=== PATIENT | male | born 1940 | race Caucasian/White ===

== ENCOUNTER → 2018-04-05 | Outpatient (CLI) | payer MEDICARE, BC ==
--- NOTE | 2018-04-05 09:33 | CT ---
EXAMINATION TYPE: CT abdomen pelvis wo con DATE OF EXAM: 04/05/2018 COMPARISON: NONE HISTORY: Urinary bladder calculus CT DLP: 911.0 mGycm Automated exposure control for dose reduction was used. TECHNIQUE: Helical acquisition of images was performed from the lung bases through the pelvis. FINDINGS: LUNG BASES: Punctate 2 mm noncalcified pulmonary nodule seen in the subpleural right posterior lung b ase on image 8. LIVER/GB: Multiple large gallstones layer within the gallbladder body and neck. Liver is of unremarka ble unenhanced morphology. PANCREAS: No significant abnormality is seen. SPLEEN: Small splenule seen posterior to the [place] spleen. ADRENALS: No significant abnormality is seen. KIDNEYS/URINARYBLADDER/PROSTATE: Linear nonobstructing 7 mm left upper pole renal calculus and 4 mm l eft lower pole nonobstructing renal calculus as well as 2 additional 2 mm left lower pole nonobstruct ing renal calculi are seen. 3 mm right lower pole renal calculus is also nonobstructing. No hydroneph rosis. There are approximately 10 large urinary bladder calculi measuring up to 2.6 cm collected with in the dependent urinary bladder. Prostate gland is enlarged measuring up to 6.1 cm in transverse dim ension containing few punctate central zone calcifications. Small left inguinal hernia is identified with bilateral fat filled inguinal rings. FREE AIR: No free air is visualized PELVIC ADENOPATHY: No greater than 1 cm short axis lymph nodes are seen within the abdomen or pelvis . OSSEOUS STRUCTURES: Extensive degenerative changes are seen of the right femoral acetabular joint an d to a lesser degree of the left femoral acetabular joint. Punctate sclerotic foci are scattered thro ughout the pelvis with no aggressive appearing lesion. Moderate multilevel degenerative changes of th e visualized spine are noted. BOWEL: Numerous sigmoid and colonic diverticula are seen without pericolonic fat stranding. Small luz wel and large bowel are both nondilated. OTHER: Moderate calcific atheromatous changes are seen of the abdominal artery and its branches. IMPRESSION: 1. AT LEAST 10 LARGE URINARY BLADDER CALCULI MEASURING UP TO 2.6 CM LAYERING DEPENDENTLY WITHIN THE U RINARY BLADDER. THESE COULD BE A RESULT OF CHRONIC BLADDER OUTLET OBSTRUCTION THE PROSTATE GLAND I S ENLARGED MEASURING 6.1 CM AND SLIGHTLY HETEROGENOUS. 2. BILATERAL NONOBSTRUCTING RENAL CALCULI. NO CURRENT EVIDENCE OF OBSTRUCTIVE UROPATHY. 3. CHOLELITHIASIS. NO CT EVIDENCE OF ACUTE CHOLECYSTITIS.
== END | disposition home or self-care (01) ==
LOC: RADCTMAIN 08:26
PROVIDERS: ATTEND Urology
DX: N21.0 Calculus in bladder (principal); N40.0 Benign prostatic hyperplasia without lower urinary tract symptoms; N20.0 Calculus of kidney; K80.20 Calculus of gallbladder without cholecystitis without obstruction
CPT/HCPCS: 74176

== ENCOUNTER → 2018-05-23 | Outpatient (CLI) | payer MEDICARE, BC ==
[2018-05-23 14:31] LABS: Anisocytosis Slight; Basophils % (A) 0 %; Eosinophils # (A) 0.1 k/uL (0-0.7); Eosinophils % (A) 2 %; HCT 43.6 % (39.0-53.0); HGB 13.7 gm/dL (13.0-17.5); Hypochromasia Slight; Lymphocytes # (A) 0.7 k/uL (1.0-4.8); Lymphocytes % (A) 17 %; MCH 25.7 pg (25.0-35.0); MCHC 31.5 g/dL (31.0-37.0); MCV 81.7 fL (80.0-100.0); Mean Platelet Volume 8.4; Microcytosis Slight; Monocytes # (A) 0.4 k/uL (0-1.0); Monocytes % (A) 11 %; Neutrophils # (A) 2.8 k/uL (1.3-7.7); Neutrophils % (A) 69 %; Platelet Count 149 k/uL (150-450); RBC 5.33 m/uL (4.30-5.90); RDW 19.3 % (11.5-15.5)
[2018-05-23 14:39] LABS: Anion Gap 9 mmol/L; Blood Urea Nitrogen 24 mg/dL (9-20); Calcium 9.2 mg/dL (8.4-10.2); Carbon Dioxide 25 mmol/L (22-30); Chloride 109 mmol/L (98-107); Glucose 95 mg/dL (74-99); Potassium 4.7 mmol/L (3.5-5.1); Sodium 143 mmol/L (137-145)
== END | disposition home or self-care (01) ==
LOC: LABPAT 13:23
PROVIDERS: ATTEND Urology
DX: Z01.812 Encounter for preprocedural laboratory examination (principal); N21.0 Calculus in bladder; R35.0 Frequency of micturition; R31.29 Other microscopic hematuria
CPT/HCPCS: 36415; 80048; 85025; 87086

== ENCOUNTER 2018-05-30 08:31 | Inpatient (IN) | payer MEDICARE, BC ==
[2018-05-24 12:13] VITALS: BMI 29.1
--- NOTE | 2018-05-26 08:35 | P.GSHP ---
History of Present Illness H&P Date: 05/26/18 Chief Complaint: Dysuria, hematuria The patient is a 78-year-old male with voiding symptoms. He has recently experienced dysuria and hematuria. A recent computed tomography scan shows approximately 10 bladder calculi, measuring up to 2.6 cm in size. The computed tomography scan also shows multiple left renal calculi and a 3 mm right lower pole renal calculus. - Constitutional Constitutional: Denies chills, Denies fever - EENT Ears: bilateral: decreased hearing - Genitourinary (Female) Genitourinary: Reports dysuria, Reports hematuria Past Medical History Past Medical History: Atrial Fibrillation, Hearing Disorder / Deafness, Hyperlipidemia, Hypertension, Osteoarthritis (OA) Additional Past Medical History / Comment(s): Hx: HHT, kidney stones, bladder stones History of Any Multi-Drug Resistant Organisms: None Reported Past Surgical History: Heart Catheterization With Stent, Hernia Repair, Joint Replacement, Orthopedic Surgery Additional Past Surgical History / Comment(s): lt knee replacement, jessy heel spurs, umbilical hernia Past Anesthesia/Blood Transfusion Reactions: Previous Problems w/ Anesthesia Additional Past Anesthesia/Blood Transfusion Reaction / Comment(s): "slow waking up" "have to keep my head elevated" Date of Last Stent Placement:: 2000 Smoking Status: Never smoker - Past Family History Brother(s) Family Medical History: Blood Disorder Additional Family Medical History / Comment(s): 2 brothers with HHT Sister(s) Family Medical History: Blood Disorder Additional Family Medical History / Comment(s): 2 sisters HHT Father Additional Family Medical History / Comment(s): hht Mother Family Medical History: Diabetes Mellitus Medications and Allergies Home Medications Medication Instructions Recorded Confirmed Type Aspirin 81 mg PO DAILY chew 06/14/15 05/24/18 Rx Multivitamins, Thera [Multivitamin 1 each PO DAILY@1200 tab 06/14/15 05/24/18 Rx (formulary)] Ascorbic Acid [Vitamin C] 250 mg PO DAILY 05/24/18 05/24/18 History Cephalexin [Keflex] 500 mg PO Q6HR 05/24/18 05/24/18 History Lisinopril [Zestril] 20 mg PO BID 05/24/18 05/24/18 History Simvastatin [Zocor] 20 mg PO HS 05/24/18 05/24/18 History Allergies Allergy/AdvReac Type Severity Reaction Status Date / Time No Known Allergies Allergy Verified 05/24/18 11:57 Surgical - Exam - General well developed, well nourished, no distress - Neck no masses, trachea midline - Respiratory normal respiratory effort, clear to auscultation - Cardiovascular Rhythm: irregularly irregular - Abdomen Abdomen: soft, non tender, no guarding, no rigid, no rebound - Genitourinary normal penis with no external lesions, testicles non-tender - Psychiatric oriented to time, oriented to person, oriented to place, speech is normal, memory intact Assessment and Plan (1) Bladder calculi Status: Acute Code(s): N21.0 - CALCULUS IN BLADDER SNOMED Code(s): 84451294 Plan: Given the large number and size of the bladder calculi, cystolithotripsy is not felt to be a practical treatment option. He will thus undergo an open cystolithotomy. The rationale for this has been reviewed in detail with the patient, as was the anticipated perioperative course. Potential risks include anesthesia, bleeding, infection, and urinary leak. The patient understands the need for a Vasquez catheter postoperatively. He also understands that he may experience persistent voiding dysfunction due to BPH. He has been cleared by cardiology.
[~2018-05-30 08:31] MED LIST: LACTATED RINGERS 1,000 ML IV SCH; ONDANSETRON 4 MG/2 ML VIAL IVP ONE; ceFAZolin IN SWFI 2 GM/20 ML SYRINGE IVP ONE
[2018-05-30] MEDS ORDERED: LIDOCAINE 1% 20 ML VIAL (10MG/ML) FOR IV START INTRADERMA ONE (08:51)
[2018-05-30] MEDS ORDERED: LIDOCAINE 1% INJ 10MG/ML (20 ML MDV) ONE (12:33)
[2018-05-30] MEDS ORDERED: SUCCINYLCHOLINE CHLORIDE 100 MG/5 ML SYR IV ONE (12:33)
[2018-05-30] MEDS ORDERED: GLYCOPYRROLATE 0.2 MG/ML 2 ML VIAL ONE (12:33)
[2018-05-30] MEDS ORDERED: PHENYLEPHRINE-0.9% NACL SYG 1 MG/10 ML SYRINGE ONE (12:33)
[2018-05-30] MEDS ORDERED: MIDAZOLAM 2 MG/2 ML VIAL ONE (12:33)
[2018-05-30] MEDS ORDERED: PROPOFOL 10 MG/ML 20 ML VIAL IV ONE (12:33)
[2018-05-30] MEDS ORDERED: fentaNYL (PF) 50 MCG/ML 2 ML AMP ONE (12:33)
[2018-05-30] MEDS ORDERED: NEOSTIGMINE 1 MG/ML 10 ML VIAL ONE (12:33)
[2018-05-30] MEDS ORDERED: VECURONIUM 10 MG VIAL IV ONE (12:33)
[2018-05-30] MEDS ORDERED: HYDROmorphone (PF) 1 MG/ML ONE (12:33)
[2018-05-30] MEDS ORDERED: LACTATED RINGERS 1,000 ML IV ONE (13:08)
[2018-05-30] MEDS ORDERED: ACETAMINOPHEN TAB 325 MG TAB PO PRN (13:52)
[2018-05-30] MEDS ORDERED: HYDROmorphone 1 MG/ML 1 ML SYRINGE IVP PRN (13:52)
[2018-05-30] MEDS ORDERED: KETOROLAC 30 MG/ML 1 ML VIAL IVP PRN (13:55)
--- NOTE | 2018-05-30 14:03 | P.OP ---
Date of Procedure: 05/30/18 Preoperative Diagnosis: Bladder calculi Postoperative Diagnosis: Same Procedure(s) Performed: Open cystolithotomy Anesthesia: JANAA Surgeon: Marco Camara Estimated Blood Loss (ml): 30 IV fluids (ml): 700 Pathology: other (Bladder calculi, sent for gross inspection only.) Condition: stable Disposition: PACU Indications for Procedure: The patient is a 78-year-old male with voiding symptoms. He has recently experienced dysuria and hematuria. A recent computed tomography scan shows approximately 10 bladder calculi, measuring up to 2.6 cm in size. Operative Findings: Multiple large bladder calculi Description of Procedure: The patient was taken to the operating room and placed in the supine position. The lower abdomen and external genitalia were prepped and draped sterilely. A Vasquez catheter was placed. Normal saline was instilled into the bladder. The scalpel was used to make a midline infraumbilical skin incision. The Bovie electrocautery was used to incise the subcutaneous fat and linea alba in the midline. The space of Retzius was exposed. The Bovie electrocautery was used to make a midline anterior cystotomy incision. The bladder was opened, and multiple calculi were removed from the bladder. Once all of the calculi had been removed, the cystotomy incision was closed. The mucosa was closed using 3- 0 Vicryl suture in a running fashion. The muscle was closed using 2-0 Vicryl suture in a running fashion. Normal saline was again instilled into the bladder , and no leakage from the cystotomy closure was noted. A Pablo-Rice drain was left within the space of Retzius. This was brought out through a separate stab incision to the right of the midline incision. The drain was sutured to the skin using nylon suture, and was later attached to bulb suction. Hemostasis within the space of Retzius was excellent. The linea alba was closed using #1 double-stranded PDS suture in a running fashion. The skin was closed using naveed. All sponge and needle counts were correct. A sterile gauze dressing was applied over the incision. The Vasquez catheter was left to gravity drainage. The patient tolerated the procedure well was taken to the recovery room in stable condition.
[2018-05-30] MEDS ORDERED: METOPROLOL TARTRATE 5 MG/5 ML VIAL IVP ONE (14:08)
[2018-05-30] MEDS: HYDROmorphone 0.5 MG/0.5 ML SYRINGE IVP PRN ×4 (14:23→15:38)
[2018-05-30] MEDS: DEXTROSE 5%-0.45% NACL 1,000 ML IV SCH (16:43)
[2018-05-30] MEDS: HYDROcodone/APAP 5-325MG 1 EACH TAB PO PRN (18:21)
[2018-05-30] MEDS: ATORVASTATIN 10 MG TAB PO SCH (20:49)
[2018-05-30] MEDS: LISINOPRIL 20 MG TAB PO SCH (20:49)
[2018-05-31] MEDS: DEXTROSE 5%-0.45% NACL 1,000 ML IV SCH ×2 (05:26→17:13)
--- NOTE | 2018-05-31 08:03 | P.PN ---
Subjective Progress Note Date: 05/31/18 Principal diagnosis: POD #1, s/p open cystolithotomy. Mr. Bañuelos report some incisional discomfort this morning, but is otherwise doing well. Objective - Vital Signs Vital signs: Vital Signs Temp 98.5 F 05/31/18 00:27 Pulse 72 05/31/18 00:27 Resp 16 05/31/18 00:27 BP 97/54 05/31/18 00:27 Pulse Ox 95 05/31/18 00:27 Intake & Output 05/30/18 05/31/18 05/31/18 18:59 06:59 18:59 Intake Total 1700 825 Output Total 430 820 Balance 1270 5 Weight 97.522 kg Intake: IV 1700 Intake, IV Titration 825 Amount Dextrose 5%-0.45% NaCl 1, 825 000 ml @ 75 mls/hr IV . [id number] [facility] Rx#:[id number] Output: Drainage 20 Right Abdomen 20 Urine 400 800 Estimated Blood Loss 30 Other: Voiding Method Indwelling Catheter Indwelling Catheter - Constitutional General appearance: Present: cooperative, no acute distress - Gastrointestinal Gastrointestinal Comment(s): Soft, nondistended. Minimal old sanguinous drainage from incision. Minimal BRENDA output. Assessment and Plan (1) Bladder calculi Current Visit: No Status: Acute Code(s): N21.0 - CALCULUS IN BLADDER SNOMED Code(s): 60144356 Plan: Doing well. Encourage fluids and ambulation. Anticipate discharge home tomorrow with Vasquez catheter.
[2018-05-31] MEDS: LISINOPRIL 20 MG TAB PO SCH ×2 (08:28→21:00)
--- NOTE | 2018-05-31 11:45 | P.PN ---
Subjective Principal diagnosis: Patient of Dr. Galan Doing well following cystoscopy lithotomy Denies any chest discomfort no undue shortness of breath does have some abdominal discomfort On examination temperature 98.5F blood pressure 117/64 mmHg pulse rate in the 70s Breath sounds are reduced bilaterally Heart sounds S1-S2 normal, no murmurs or gallops Impression Hypertension, on lisinopril and amlodipine Dyslipidemia on simvastatin Suggest Continue/restart cardiac medications and follow-up with Dr. Galan in the next 4 -6 weeks Objective - Vital Signs Vital signs: Vital Signs Temp 98.5 F 05/31/18 00:27 Pulse 72 05/31/18 00:27 Resp 16 05/31/18 00:27 BP 97/54 05/31/18 00:27 Pulse Ox 95 05/31/18 00:27 Intake & Output 05/30/18 05/31/18 05/31/18 18:59 06:59 18:59 Intake Total 1700 825 Output Total 430 820 Balance 1270 5 Weight 97.522 kg Intake: IV 1700 Intake, IV Titration 825 Amount Dextrose 5%-0.45% NaCl 1, 825 000 ml @ 75 mls/hr IV . [id number] [facility] Rx#:[id number] Output: Drainage 20 Right Abdomen 20 Urine 400 800 Estimated Blood Loss 30 Other: Voiding Method Indwelling Catheter Indwelling Catheter # Voids 1
[2018-05-31] MEDS: ATORVASTATIN 10 MG TAB PO SCH (21:00)
[2018-06-01] MEDS: LISINOPRIL 20 MG TAB PO SCH ×2 (08:22→21:19)
[2018-06-01] MEDS: HYDROcodone/APAP 5-325MG 1 EACH TAB PO PRN ×2 (08:49→21:19)
--- NOTE | 2018-06-01 09:49 | P.PN ---
Progress Note - Text Progress Note Date: 06/01/18 The patient is afebrile and normotensive. He is tolerating a diet but has not had a bowel movement since he was admitted. He has been sitting at the side of the bed but has not been ambulatory due to suprapubic discomfort. On examination the patient's incision and is uninflamed. His Pablo-Rice drain continues to have a moderate amount of serosanguineous material draining. Urine draining from the Vasquez catheter is clear. The patient's diet and activity will be advanced and hopefully he will be ready for discharge tomorrow with a catheter in place.
[2018-06-01] MEDS: DEXTROSE 5%-0.45% NACL 1,000 ML IV SCH ×2 (18:45→21:21)
[2018-06-01] MEDS: ATORVASTATIN 10 MG TAB PO SCH (21:19)
[2018-06-02] MEDS: DEXTROSE 5%-0.45% NACL 1,000 ML IV SCH (09:30)
[2018-06-02] MEDS: LISINOPRIL 20 MG TAB PO SCH (09:30)
[2018-06-02] MEDS: HYDROcodone/APAP 5-325MG 1 EACH TAB PO PRN ×2 (12:59→17:12)
[2018-06-02 16:42] VITALS: BP 124/71; PULSE 81; RESP 16; TEMP 97.9
== END 2018-06-02 18:34 | disposition home or self-care (01) | DRG 664 ==
LOC: 2ORMAIN 08:31 → 3SUR 14:09
PROVIDERS: ADMIT Urology; ATTEND Urology
PROC: 0TCB0ZZ Extirpation of Matter from Bladder, Open Approach (ICD-10-PCS; principal; 2018-05-30 10:20)
DX: N21.0 Calculus in bladder (principal); E78.5 Hyperlipidemia, unspecified; H91.90 Unspecified hearing loss, unspecified ear; I10 Essential (primary) hypertension; I48.91 Unspecified atrial fibrillation; N20.0 Calculus of kidney; Z79.899 Other long term (current) drug therapy; Z82.49 Family history of ischemic heart disease and other diseases of the circulatory system; Z83.3 Family history of diabetes mellitus; Z87.442 Personal history of urinary calculi; Z96.652 Presence of left artificial knee joint; Z83.2 Family history of diseases of the blood and blood-forming organs and certain disorders involving the immune mechanism; M19.90 Unspecified osteoarthritis, unspecified site; I25.10 Atherosclerotic heart disease of native coronary artery without angina pectoris; Z95.5 Presence of coronary angioplasty implant and graft
CPT/HCPCS: 88300; 93005

== ENCOUNTER 2018-06-05 15:20 | Inpatient (IN) | payer MEDICARE, BC ==
--- NOTE | 2018-06-05 17:04 | ED ---
Fever HPI - General Chief Complaint: Fever Stated Complaint: fever/shaky Time Seen by Provider: 06/05/18 16:50 Source: patient, family, RN notes reviewed Mode of arrival: wheelchair Limitations: no limitations - History of Present Illness Initial Comments: This is a 78-year-old male with a history of recent bladder stone removal who has a Vasquez catheter since the of this month who had a sudden onset at 1440 5 PM today and shakes and fever. Also he believes his catheter may be plugged he had clots were he had pink colored urine before. He denies any overt abdominal pain at this time that he states it feels full in the lower abdomen. No other symptoms reported MD Complaint: fever, other - Related Data Home Medications Medication Instructions Recorded Confirmed Ascorbic Acid [Vitamin C] 250 mg PO DAILY 05/24/18 06/05/18 Lisinopril [Zestril] 20 mg PO BID 05/24/18 06/05/18 Simvastatin [Zocor] 20 mg PO HS 05/24/18 06/05/18 Previous Rx's Medication Instructions Recorded Aspirin 81 mg PO DAILY chew 06/14/15 Multivitamins, Thera [Multivitamin 1 each PO DAILY@1200 tab 06/14/15 (formulary)] HYDROcodone/APAP 5-325MG [[place] 1 tab PO Q6HR PRN 3 Days #12 tab 06/02/18 5-325] Allergies Allergy/AdvReac Type Severity Reaction Status Date / Time No Known Allergies Allergy Verified 06/05/18 17:06 Review of Systems ROS Statement: Those systems with pertinent positive or pertinent negative responses have been documented in the HPI. ROS Other: All systems not noted in ROS Statement are negative. Past Medical History Past Medical History: Atrial Fibrillation, Hearing Disorder / Deafness, Hyperlipidemia, Hypertension, Osteoarthritis (OA) Additional Past Medical History / Comment(s): Hx: HHT, kidney stones, bladder stones History of Any Multi-Drug Resistant Organisms: None Reported Past Surgical History: Heart Catheterization With Stent, Hernia Repair, Joint Replacement, Orthopedic Surgery Additional Past Surgical History / Comment(s): lt knee replacement, jessy heel spurs, umbilical hernia Past Anesthesia/Blood Transfusion Reactions: Previous Problems w/ Anesthesia Additional Past Anesthesia/Blood Transfusion Reaction / Comment(s): "slow waking up" "have to keep my head elevated so I don't get nosebleeds" Date of Last Stent Placement:: 2000 Past Psychological History: No Psychological Hx Reported Smoking Status: Never smoker Past Alcohol Use History: None Reported Past Drug Use History: None Reported - Past Family History Brother(s) Family Medical History: Blood Disorder Additional Family Medical History / Comment(s): 2 brothers with HHT Sister(s) Family Medical History: Blood Disorder Additional Family Medical History / Comment(s): 2 sisters HHT Father Additional Family Medical History / Comment(s): hht Mother Family Medical History: Diabetes Mellitus General Exam - General Exam Comments Initial Comments: This is a well-developed well-nourished awake alert oriented times 3 male Limitations: no limitations General appearance: alert, anxious Head exam: Present: atraumatic, normocephalic, normal inspection Eye exam: Present: normal appearance, PERRL, EOMI. Absent: scleral icterus, conjunctival injection, periorbital swelling ENT exam: Present: normal exam, mucous membranes moist Neck exam: Present: normal inspection. Absent: tenderness, meningismus, lymphadenopathy Respiratory exam: Present: normal lung sounds bilaterally. Absent: respiratory distress, wheezes, rales, rhonchi, stridor Cardiovascular Exam: Present: normal rhythm, tachycardia, normal heart sounds. Absent: systolic murmur, diastolic murmur, rubs, gallop, clicks GI/Abdominal exam: Present: soft, normal bowel sounds, other (Patient is abdomen revealed a well-healing surgical staple line with no evidence of any dehiscence). Absent: distended, guarding, rebound, rigid exam: Present: other (Vasquez catheter present with blood and clots present.) Extremities exam: Present: normal inspection, full ROM, normal capillary refill. Absent: tenderness, pedal edema, joint swelling, calf tenderness Back exam: Present: normal inspection Neurological exam: Present: alert, oriented X3, CN II-XII intact Psychiatric exam: Present: normal affect, normal mood Skin exam: Present: warm, dry, intact, normal color. Absent: rash Course Vital Signs 06/05/18 06/05/18 06/05/18 15:25 16:30 18:00 Temperature 102.7 F H 102.5 F H Pulse Rate 124 H 136 H 135 H Respiratory 20 24 20 Rate Blood Pressure 184/93 89/50 99/48 O2 Sat by Pulse 96 99 96 Oximetry 06/05/18 06/05/18 06/05/18 18:15 19:00 20:00 Temperature 99.9 F H Pulse Rate 129 H 126 H 123 H Respiratory 24 22 22 Rate Blood Pressure 99/48 105/65 99/56 O2 Sat by Pulse 95 99 97 Oximetry 06/05/18 06/05/18 06/05/18 20:30 21:00 21:24 Temperature 99.1 F Pulse Rate 89 88 92 Respiratory 22 20 16 Rate Blood Pressure 81/40 84/56 80/48 O2 Sat by Pulse 98 99 Oximetry - Reevaluation(s) Reevaluation #1: 06/05/18 20:59 Patient initially did not get much improvement in his ventricular rate was into the 150s and 60s at times. Cardizem was started. Reevaluation #2: 06/05/18 20:59 There were issues with the patient blood pressure initially being elevated than evidence of hypotension was noted. Patient was given IV fluids IV antibiotics his heart rate has improved blood pressure is slowly improving. Reevaluation #3: 06/05/18 21:27 Cardizem will be DC'd as his heart rate has improved to below 100. This may be some other reason for a low blood pressure. Reevaluation #4: 06/05/18 21:28 I did discuss case with Dr. Harrell with Dr. Montalvo and . Medical Decision Making - Lab Data Result diagrams: 06/05/18 17:17 06/05/18 17:17 Lab Results 06/05/18 06/05/18 06/05/18 Range/Units 17:15 17:17 17:17 WBC 1.5 L* (3.8-10.6) k/uL RBC 5.51 (4.30-5.90) m/uL Hgb 14.6 (13.0-17.5) gm/dL Hct 44.7 (39.0-53.0) % MCV 81.2 (80.0-100.0) fL MCH 26.5 (25.0-35.0) pg MCHC 32.7 (31.0-37.0) g/dL RDW 17.6 H (11.5-15.5) % Plt Count 122 L (150-450) k/uL Neutrophils % 92 % Lymphocytes % 5 % Monocytes % 2 % Eosinophils % 1 % Basophils % 0 % Neutrophils # 1.4 (1.3-7.7) k/uL Lymphocytes # 0.1 L (1.0-4.8) k/uL Monocytes # 0.0 (0-1.0) k/uL Eosinophils # 0.0 (0-0.7) k/uL Basophils # 0.0 (0-0.2) k/uL Large Platelets Present Anisocytosis Slight Microcytosis Slight Sodium 139 (137-145) mmol/L Potassium 4.6 (3.5-5.1) mmol/L Chloride 104 (98-107) mmol/L Carbon Dioxide 21 L (22-30) mmol/L Anion Gap 14 mmol/L BUN 25 H (9-20) mg/dL Creatinine 0.94 (0.66-1.25) mg/dL Est GFR (CKD-EPI)AfAm 89 (>60 ml/min/1.73 sqM) Est GFR (CKD-EPI)NonAf 77 (>60 ml/min/1.73 sqM) Glucose 100 H (74-99) mg/dL Lactic Ac Sepsis Rflx Plasma Lactic Acid Chente (0.7-2.0) mmol/L Calcium 9.3 (8.4-10.2) mg/dL Magnesium (1.6-2.3) mg/dL Total Bilirubin 5.1 H (0.2-1.3) mg/dL AST 35 (17-59) U/L ALT 23 (21-72) U/L Alkaline Phosphatase 87 (38-126) U/L Total Protein 7.1 (6.3-8.2) g/dL Albumin 4.5 (3.5-5.0) g/dL Urine Color Yellow Urine Appearance Cloudy (Clear) Urine pH 6.0 (5.0-8.0) Ur Specific [place] 1.013 (1.001-1.035) Urine Protein 1+ H (Negative) Urine Glucose (UA) Negative (Negative) Urine Ketones Negative (Negative) Urine Blood Large H (Negative) Urine Nitrite Positive (Negative) Urine Bilirubin Negative (Negative) Urine Urobilinogen <2.0 (<2.0) mg/dL Ur Leukocyte Esterase Large H (Negative) Urine RBC 59 H (0-5) /hpf Urine WBC 116 H (0-5) /hpf Ur Squamous Epith Cells 3 (0-4) /hpf Urine Bacteria Few H (None) /hpf Urine Mucus Occasional H (None) /hpf 06/05/18 06/05/18 06/05/18 Range/Units 17:17 17:17 17:55 WBC (3.8-10.6) k/uL RBC (4.30-5.90) m/uL Hgb (13.0-17.5) gm/dL Hct (39.0-53.0) % MCV (80.0-100.0) fL MCH (25.0-35.0) pg MCHC (31.0-37.0) g/dL RDW (11.5-15.5) % Plt Count (150-450) k/uL Neutrophils % % Lymphocytes % % Monocytes % % Eosinophils % % Basophils % % Neutrophils # (1.3-7.7) k/uL Lymphocytes # (1.0-4.8) k/uL Monocytes # (0-1.0) k/uL Eosinophils # (0-0.7) k/uL Basophils # (0-0.2) k/uL Large Platelets Anisocytosis Microcytosis Sodium (137-145) mmol/L Potassium (3.5-5.1) mmol/L Chloride (98-107) mmol/L Carbon Dioxide (22-30) mmol/L Anion Gap mmol/L BUN (9-20) mg/dL Creatinine (0.66-1.25) mg/dL Est GFR (CKD-EPI)AfAm (>60 ml/min/1.73 sqM) Est GFR (CKD-EPI)NonAf (>60 ml/min/1.73 sqM) Glucose (74-99) mg/dL Lactic Ac Sepsis Rflx Y Plasma Lactic Acid Chente 3.8 H* (0.7-2.0) mmol/L Calcium (8.4-10.2) mg/dL Magnesium 1.7 (1.6-2.3) mg/dL Total Bilirubin (0.2-1.3) mg/dL AST (17-59) U/L ALT (21-72) U/L Alkaline Phosphatase (38-126) U/L Total Protein (6.3-8.2) g/dL Albumin (3.5-5.0) g/dL Urine Color Urine Appearance (Clear) Urine pH (5.0-8.0) Ur Specific [place] (1.001-1.035) Urine Protein (Negative) Urine Glucose (UA) (Negative) Urine Ketones (Negative) Urine Blood (Negative) Urine Nitrite (Negative) Urine Bilirubin (Negative) Urine Urobilinogen (<2.0) mg/dL Ur Leukocyte Esterase (Negative) Urine RBC (0-5) /hpf Urine WBC (0-5) /hpf Ur Squamous Epith Cells (0-4) /hpf Urine Bacteria (None) /hpf Urine Mucus (None) /hpf - EKG Data -: EKG Interpreted by Me (After ventilation rate 136 QRS 98 daily since QTC at 294/440 to the left ex) - Radiology Data Radiology results: report reviewed (I did review the imaging and reports no definite acute findings.), image reviewed Critical Care Time Critical Care Time: Yes Critical Care Time: 47 this also includes admission orders and documentation of the above minutes of critical care time which includes initial presentation with history physical labs x-rays multiple reevaluation the patient responsive therapy. Discussion with the patient has regarding findings review of old charting discussion with the admitting physician as well as the consults. Disposition Clinical Impression: Sepsis, Urinary tract infection, Rapid atrial fibrillation, Dehydration, Hypotensive episode Disposition: ADMITTED IP TO THIS HOSP Condition: Serious Referrals: [facility],Clinic [Primary Care Provider] - 1-2 days
[2018-06-05] MEDS ORDERED: SODIUM CHLORIDE 0.9% 1,000 ML IV STA ×2 (17:36)
[2018-06-05 17:41] LABS: Appearance,Urine Cloudy (Clear); Bacteria,Urine Few /hpf; Bilirubin,Urine Negative (Negative); Blood,Urine Large (Negative); Color,Urine Yellow; Glucose,Urine (UA) Negative (Negative); Ketones,Urine Negative (Negative); Leukocyte Esterase,Urine Large (Negative); Mucus,Urine Occasional /hpf; Nitrite,Urine Positive (Negative); Protein,Urine 1+ (Negative); RBC,Urine 59 /hpf (0-5); Specific Gravity,Urine 1.013 (1.001-1.035); Squamous Epithelial Cell,Urine 3 /hpf (0-4); Urobilinogen,Urine <2.0 mg/dL (<2.0); WBC,Urine 116 /hpf (0-5)
[2018-06-05 17:45] LABS: Albumin 4.5 g/dL (3.5-5.0); Calcium 9.3 mg/dL (8.4-10.2); Potassium 4.6 mmol/L (3.5-5.1); Total Bilirubin 5.1 mg/dL (0.2-1.3); Total Protein 7.1 g/dL (6.3-8.2)
[2018-06-05 17:55] LABS: Anisocytosis Slight; Basophils % (A) 0 %; Eosinophils % (A) 1 %; HCT 44.7 % (39.0-53.0); HGB 14.6 gm/dL (13.0-17.5); Lymphocytes # (A) 0.1 k/uL (1.0-4.8); Lymphocytes % (A) 5 %; MCH 26.5 pg (25.0-35.0); MCHC 32.7 g/dL (31.0-37.0); MCV 81.2 fL (80.0-100.0); Mean Platelet Volume 7.8; Microcytosis Slight; Monocytes % (A) 2 %; Neutrophils # (A) 1.4 k/uL (1.3-7.7); Neutrophils % (A) 92 %; Platelet Count 122 k/uL (150-450); RBC 5.51 m/uL (4.30-5.90); RDW 17.6 % (11.5-15.5)
[2018-06-05 18:00] LABS: WBC 1.5 k/uL (3.8-10.6)
--- NOTE | 2018-06-05 18:15 | XR ---
EXAMINATION: XR chest 2V DATE AND TIME: 06/05/2018 6:00 PM ORDERING PROVIDER: Dao Higgins MD CLINICAL INDICATION: cough TECHNIQUE: PA and lateral COMPARISON: 07/12/2015 DESCRIPTION: The lungs are clear. The pleural spaces are negative for acute findings. Blunted and elevated left costophrenic angle is u nchanged. Lateral chest wall indistinctness seen on the prior study is redemonstrated without interva l change. The skeletal structures are intact without focal findings. The cardiac silhouette is mild enlarged, unchanged. IMPRESSION: 1. NO ACUTE PROCESS. 2. CHRONIC CHANGES. The soft tissues are unremarkable. IMPRESSION: NO ACUTE PROCESS.
--- NOTE | 2018-06-05 18:26 | XR ---
EXAMINATION TYPE: XR abdomen and pelvis - 3V DATE OF EXAM: 06/05/2018 COMPARISON: NONE HISTORY: Pain, shaking and fever for one day with blood coming from Vasquez catheter, bladder stone rem oval 04/30/2018. TECHNIQUE: Upright abdomen, supine pelvis, and supine abdomen FINDINGS: The overlying soft tissues are prominent and limited visualization to a moderate degree. There is no pneumoperitoneum or pneumatosis. Bowel gas pattern is normal. Visualized lung bases and pleural spaces are unremarkable. Vertically oriented naveed are seen over the lower left pelvis. There are no acute soft tissue or skeletal findings evident. 4 calcifications are clustered in the ri ght upper quadrant, consistent with cholelithiasis. No other definite soft tissue calcifications. IMPRESSION: NO ACUTE FINDINGS.
[2018-06-05 18:44] LABS: Large Platelets Present
[2018-06-05] MEDS ORDERED: SODIUM CHLORIDE 0.9% 2,000 ML IV ONE (18:44)
[2018-06-05] MEDS ORDERED: cefTRIAXone IN SWFI 1,000 MG/10 ML SYRINGE IVP STA (18:44)
[2018-06-05] MEDS ORDERED: DILTIAZEM DRIP BOLUS FROM BAG 1 MG SOLN IV ONE (19:14)
[2018-06-05] MEDS: DILTIAZEM 50 MG in SODIUM CHLORIDE 0.9% 40 ML IV SCH ×2 (20:13→23:00)
[2018-06-05] MEDS ORDERED: SODIUM CHLORIDE 0.9% 1,000 ML IV ONE (20:41)
[2018-06-05] MEDS ORDERED: ACETAMINOPHEN TAB 325 MG TAB PO PRN (21:30)
[2018-06-05] MEDS ORDERED: NALOXONE 0.4 MG/ML 1 ML VIAL IV PRN (21:30)
[2018-06-05] MEDS ORDERED: HYDROcodone/APAP 5-325MG 1 EACH TAB PO PRN (21:33)
[2018-06-05] MEDS ORDERED: SODIUM CHLORIDE 0.9% 1,000 ML BAG ONE (22:00)
[2018-06-05 23:04] LABS: Glucose,Whole Blood 112 mg/dL (75-99)
[2018-06-05] MEDS ORDERED: NOREPINEPHRINE 4 MG-0.9% NS PMX 250 ML IV ONE (23:42)
[2018-06-06] MEDS: NOREPINEPHRINE 4 MG in DEXTROSE 5% IN WATER 250 ML IV SCH ×6 (04:00→11:39)
[2018-06-06 04:50] VITALS: BMI 31.4
[2018-06-06 05:10] LABS: INR 1.3 (<1.2); Partial Thromboplastin Time 25.9 sec (22.0-30.0); Prothrombin Time 12.5 sec (9.0-12.0)
[2018-06-06 05:38] LABS: Anisocytosis Slight; HCT 38.6 % (39.0-53.0); HGB 12.5 gm/dL (13.0-17.5); Hypochromasia Slight; MCH 27.2 pg (25.0-35.0); MCHC 32.4 g/dL (31.0-37.0); MCV 83.9 fL (80.0-100.0); Mean Platelet Volume 7.9; RDW 17.7 % (11.5-15.5); WBC 14.1 k/uL (3.8-10.6)
[2018-06-06 05:46] LABS: Calcium 7.8 mg/dL (8.4-10.2); Magnesium 1.2 mg/dL (1.6-2.3); Phosphorus 2.4 mg/dL (2.5-4.5); Potassium 4.1 mmol/L (3.5-5.1); Total Bilirubin 5.4 mg/dL (0.2-1.3); Total Protein 5.3 g/dL (6.3-8.2)
[2018-06-06 05:51] LABS: Band Neutrophils % 30 %; Lymphocytes # (M) 0.28 k/uL (1.0-4.8); Metamyelocytes # (M) 1.55 k/uL (0); Metamyelocytes % 11 %; Monocytes # (M) 0.42 k/uL (0-1.0); Neutrophils % (M) 54 %; Nucleated Red Blood Cells 0 /100 WBC (0-0); Total Cells Counted 200
[2018-06-06 05:52] LABS: Platelet Count 92 k/uL (150-450)
[2018-06-06] MEDS ORDERED: Magnesium Replacement Protocol 1 EACH MISC MISCELLANE PRN (05:53)
[2018-06-06] MEDS ORDERED: Phosphorus Replacement Protoco 1 EACH MISC MISCELLANE PRN (05:53)
[2018-06-06] MEDS: MAGNESIUM SULFATE-D5W PMX 1 GM in DEXTROSE/WATER 1 100ML.BAG IVPB SCH ×3 (06:08→08:36)
--- NOTE | 2018-06-06 06:44 | P.GSCN ---
History of Present Illness Consult date: 06/06/18 History of present illness: 78 yo male recently with removal of bladder stones In [facility] with uti w sepsis and afib with rvr. His lactic acid was elevated. He is feeling better this morning. His vital signs are better. His white count is 14,000 this morning. He is awake and alert. Review of Systems - Constitutional Reports as per HPI - Genitourinary Reports as per HPI Past Medical History Past Medical History: Atrial Fibrillation, Hearing Disorder / Deafness, Hyperlipidemia, Hypertension, Osteoarthritis (OA) Additional Past Medical History / Comment(s): Hx: HHT, kidney stones, bladder stones History of Any Multi-Drug Resistant Organisms: None Reported Past Surgical History: Heart Catheterization With Stent, Hernia Repair, Joint Replacement, Orthopedic Surgery Additional Past Surgical History / Comment(s): lt knee replacement, jessy heel spurs, umbilical hernia Past Anesthesia/Blood Transfusion Reactions: Previous Problems w/ Anesthesia Additional Past Anesthesia/Blood Transfusion Reaction / Comm: "slow waking up" "have to keep my head elevated so I don't get nosebleeds" Date of Last Stent Placement:: 2000 Past Psychological History: No Psychological Hx Reported Smoking Status: Never smoker Past Alcohol Use History: None Reported Past Drug Use History: None Reported - Past Family History Brother(s) Family Medical History: Blood Disorder Additional Family Medical History / Comment(s): 2 brothers with HHT Sister(s) Family Medical History: Blood Disorder Additional Family Medical History / Comment(s): 2 sisters HHT Father Additional Family Medical History / Comment(s): hht Mother Family Medical History: Diabetes Mellitus Medications and Allergies Home Medications Medication Instructions Recorded Confirmed Type Aspirin 81 mg PO DAILY chew 06/14/15 06/05/18 Rx Multivitamins, Thera [Multivitamin 1 each PO DAILY@1200 tab 06/14/15 06/05/18 Rx (formulary)] Ascorbic Acid [Vitamin C] 250 mg PO DAILY 05/24/18 06/05/18 History Lisinopril [Zestril] 20 mg PO BID 05/24/18 06/05/18 History Simvastatin [Zocor] 20 mg PO HS 05/24/18 06/05/18 History HYDROcodone/APAP 5-325MG [[place] 1 tab PO Q6HR PRN 3 Days #12 tab 06/02/18 Rx 5-325] Allergies Allergy/AdvReac Type Severity Reaction Status Date / Time No Known Allergies Allergy Verified 06/05/18 17:06 Surgical - Exam Vital Signs Temp Pulse Resp BP Pulse Ox 102.7 F H 124 H 20 184/93 96 06/05/18 15:25 06/05/18 15:25 06/05/18 15:25 06/05/18 15:25 06/05/18 15:25 - General well developed, well nourished - Eyes PERRL - ENT no hearing loss - Neck trachea midline - Respiratory normal expansion, normal respiratory effort - Cardiovascular Rhythm: regular - Abdomen The suprapubic incision does not appear to be significantly inflamed or tender. Abdomen: soft, non tender - Genitourinary catheter - Neurologic normal coordination, normal sensation - Musculoskeletal normal posture - Psychiatric oriented to time, oriented to person, oriented to place, speech is normal, memory intact Results - Labs 06/06/18 04:46 06/06/18 04:46 Abnormal Lab Results - Last 24 Hours (Table) 06/05/18 06/05/18 06/05/18 Range/Units 17:15 17:17 17:17 WBC 1.5 L* (3.8-10.6) k/uL Hgb (13.0-17.5) gm/dL Hct (39.0-53.0) % RDW 17.6 H (11.5-15.5) % Plt Count 122 L (150-450) k/uL Neutrophils # (Manual) (1.3-7.7) k/uL Lymphocytes # 0.1 L (1.0-4.8) k/uL Lymphocytes # (Manual) (1.0-4.8) k/uL Metamyelocytes # (Man) (0) k/uL PT (9.0-12.0) sec INR (<1.2) Chloride (98-107) mmol/L Carbon Dioxide 21 L (22-30) mmol/L BUN 25 H (9-20) mg/dL Glucose 100 H (74-99) mg/dL POC Glucose (mg/dL) (75-99) mg/dL Plasma Lactic Acid Chente (0.7-2.0) mmol/L Calcium (8.4-10.2) mg/dL Phosphorus (2.5-4.5) mg/dL Magnesium (1.6-2.3) mg/dL Total Bilirubin 5.1 H (0.2-1.3) mg/dL Total Protein (6.3-8.2) g/dL Albumin (3.5-5.0) g/dL Urine Protein 1+ H (Negative) Urine Blood Large H (Negative) Ur Leukocyte Esterase Large H (Negative) Urine RBC 59 H (0-5) /hpf Urine WBC 116 H (0-5) /hpf Urine Bacteria Few H (None) /hpf Urine Mucus Occasional H (None) /hpf 06/05/18 06/05/18 06/05/18 Range/Units 17:17 22:24 23:01 WBC (3.8-10.6) k/uL Hgb (13.0-17.5) gm/dL Hct (39.0-53.0) % RDW (11.5-15.5) % Plt Count (150-450) k/uL Neutrophils # (Manual) (1.3-7.7) k/uL Lymphocytes # (1.0-4.8) k/uL Lymphocytes # (Manual) (1.0-4.8) k/uL Metamyelocytes # (Man) (0) k/uL PT (9.0-12.0) sec INR (<1.2) Chloride (98-107) mmol/L Carbon Dioxide (22-30) mmol/L BUN (9-20) mg/dL Glucose (74-99) mg/dL POC Glucose (mg/dL) 112 H (75-99) mg/dL Plasma Lactic Acid Chente 3.8 H* 4.6 H* (0.7-2.0) mmol/L Calcium (8.4-10.2) mg/dL Phosphorus (2.5-4.5) mg/dL Magnesium (1.6-2.3) mg/dL Total Bilirubin (0.2-1.3) mg/dL Total Protein (6.3-8.2) g/dL Albumin (3.5-5.0) g/dL Urine Protein (Negative) Urine Blood (Negative) Ur Leukocyte Esterase (Negative) Urine RBC (0-5) /hpf Urine WBC (0-5) /hpf Urine Bacteria (None) /hpf Urine Mucus (None) /hpf 06/06/18 06/06/18 06/06/18 Range/Units 04:46 04:46 04:46 WBC 14.1 H (3.8-10.6) k/uL Hgb 12.5 L (13.0-17.5) gm/dL Hct 38.6 L (39.0-53.0) % RDW 17.7 H (11.5-15.5) % Plt Count 92 L (150-450) k/uL Neutrophils # (Manual) 11.80 H (1.3-7.7) k/uL Lymphocytes # (1.0-4.8) k/uL Lymphocytes # (Manual) 0.28 L (1.0-4.8) k/uL Metamyelocytes # (Man) 1.55 H (0) k/uL PT 12.5 H (9.0-12.0) sec INR 1.3 H (<1.2) Chloride 111 H (98-107) mmol/L Carbon Dioxide 16 L (22-30) mmol/L BUN 27 H (9-20) mg/dL Glucose 139 H (74-99) mg/dL POC Glucose (mg/dL) (75-99) mg/dL Plasma Lactic Acid Chente (0.7-2.0) mmol/L Calcium 7.8 L (8.4-10.2) mg/dL Phosphorus 2.4 L (2.5-4.5) mg/dL Magnesium 1.2 L (1.6-2.3) mg/dL Total Bilirubin 5.4 H (0.2-1.3) mg/dL Total Protein 5.3 L (6.3-8.2) g/dL Albumin 3.0 L (3.5-5.0) g/dL Urine Protein (Negative) Urine Blood (Negative) Ur Leukocyte Esterase (Negative) Urine RBC (0-5) /hpf Urine WBC (0-5) /hpf Urine Bacteria (None) /hpf Urine Mucus (None) /hpf Diabetes panel 06/05/18 06/06/18 Range/Units 17:17 04:46 Sodium 139 139 (137-145) mmol/L Potassium 4.6 4.1 (3.5-5.1) mmol/L Chloride 104 111 H (98-107) mmol/L Carbon Dioxide 21 L 16 L (22-30) mmol/L BUN 25 H 27 H (9-20) mg/dL Creatinine 0.94 1.16 (0.66-1.25) mg/dL Glucose 100 H 139 H (74-99) mg/dL Calcium 9.3 7.8 L (8.4-10.2) mg/dL AST 35 41 (17-59) U/L ALT 23 32 (21-72) U/L Alkaline Phosphatase 87 69 (38-126) U/L Total Protein 7.1 5.3 L (6.3-8.2) g/dL Albumin 4.5 3.0 L (3.5-5.0) g/dL Calcium panel 06/05/18 06/06/18 Range/Units 17:17 04:46 Calcium 9.3 7.8 L (8.4-10.2) mg/dL Phosphorus 2.4 L (2.5-4.5) mg/dL Albumin 4.5 3.0 L (3.5-5.0) g/dL Pituitary panel 06/05/18 06/06/18 Range/Units 17:17 04:46 Sodium 139 139 (137-145) mmol/L Potassium 4.6 4.1 (3.5-5.1) mmol/L Chloride 104 111 H (98-107) mmol/L Carbon Dioxide 21 L 16 L (22-30) mmol/L BUN 25 H 27 H (9-20) mg/dL Creatinine 0.94 1.16 (0.66-1.25) mg/dL Glucose 100 H 139 H (74-99) mg/dL Calcium 9.3 7.8 L (8.4-10.2) mg/dL Adrenal panel 06/05/18 06/06/18 Range/Units 17:17 04:46 Sodium 139 139 (137-145) mmol/L Potassium 4.6 4.1 (3.5-5.1) mmol/L Chloride 104 111 H (98-107) mmol/L Carbon Dioxide 21 L 16 L (22-30) mmol/L BUN 25 H 27 H (9-20) mg/dL Creatinine 0.94 1.16 (0.66-1.25) mg/dL Glucose 100 H 139 H (74-99) mg/dL Calcium 9.3 7.8 L (8.4-10.2) mg/dL Total Bilirubin 5.1 H 5.4 H (0.2-1.3) mg/dL AST 35 41 (17-59) U/L ALT 23 32 (21-72) U/L Alkaline Phosphatase 87 69 (38-126) U/L Total Protein 7.1 5.3 L (6.3-8.2) g/dL Albumin 4.5 3.0 L (3.5-5.0) g/dL Assessment and Plan Assessment: Impression: Uti w sepsis Hx of bladder stone[removed], medical problems Recommed. cultures and antibiotics
[2018-06-06] MEDS ORDERED: SODIUM PHOSPHATE 10 MMOL in SODIUM CHLORIDE 0.9% 250 ML IVPB ONE (07:00)
--- NOTE | 2018-06-06 07:25 | P.CNPUL ---
History of Present Illness Consult date: 06/06/18 Reason for consult: other Chief complaint: Sepsis History of present illness: Pulmonary consult dated 06/06/2018 78-year-old male with a history of recent bladder stone removal, admitted to the hospital with a diagnosis of possible sepsis. The patient apparently had abrupt onset of shakes and fever. He was found have a temperature of 102. He received quite a bit of fluid resuscitation in the emergency department but despite that became hypotensive and was started on norepinephrine. The patient' s currently on about 16 mcg/m of norepinephrine. Mucous membranes patient received more than 4 L of fluid. The patient's a little bit tachypnea. Mildly tachycardic. Normotensive currently. The patient has been seen by urology. Has a Vasquez catheter in place. The patient's history is that of atrial fibrillation, chronically, deafness, hyperlipidemia, hypertension and DJD. He does have a history of kidney stones and bladder stones. He's had a previous history of heart catheterization with stent placement hernia repair joint replacement and other orthopedic procedures. Review of Systems A 12 point review of systems is positive for weakness and fatigue fever chills shakes. Past Medical History Past Medical History: Atrial Fibrillation, Hearing Disorder / Deafness, Hyperlipidemia, Hypertension, Osteoarthritis (OA) Additional Past Medical History / Comment(s): Hx: HHT, kidney stones, bladder stones History of Any Multi-Drug Resistant Organisms: None Reported Past Surgical History: Heart Catheterization With Stent, Hernia Repair, Joint Replacement, Orthopedic Surgery Additional Past Surgical History / Comment(s): lt knee replacement, jessy heel spurs, umbilical hernia Past Anesthesia/Blood Transfusion Reactions: Previous Problems w/ Anesthesia Additional Past Anesthesia/Blood Transfusion Reaction / Comment(s): "slow waking up" "have to keep my head elevated so I don't get nosebleeds" Date of Last Stent Placement:: 2000 Past Psychological History: No Psychological Hx Reported Smoking Status: Never smoker Past Alcohol Use History: None Reported Past Drug Use History: None Reported - Past Family History Brother(s) Family Medical History: Blood Disorder Additional Family Medical History / Comment(s): 2 brothers with HHT Sister(s) Family Medical History: Blood Disorder Additional Family Medical History / Comment(s): 2 sisters HHT Father Additional Family Medical History / Comment(s): hht Mother Family Medical History: Diabetes Mellitus Medications and Allergies Home Medications Medication Instructions Recorded Confirmed Type Aspirin 81 mg PO DAILY chew 06/14/15 06/05/18 Rx Multivitamins, Thera [Multivitamin 1 each PO DAILY@1200 tab 06/14/15 06/05/18 Rx (formulary)] Ascorbic Acid [Vitamin C] 250 mg PO DAILY 05/24/18 06/05/18 History Lisinopril [Zestril] 20 mg PO BID 05/24/18 06/05/18 History Simvastatin [Zocor] 20 mg PO HS 05/24/18 06/05/18 History HYDROcodone/APAP 5-325MG [[place] 1 tab PO Q6HR PRN 3 Days #12 tab 06/02/18 Rx 5-325] Allergies Allergy/AdvReac Type Severity Reaction Status Date / Time No Known Allergies Allergy Verified 06/05/18 17:06 Physical Exam Osteopathic Statement: *. No significant issues noted on an osteopathic structural exam other than those noted in the History and Physical/Consult. Vitals: Vital Signs Temp Pulse Resp BP Pulse Ox 06/06/18 07:00 78 22 106/53 97 06/06/18 06:45 72 24 109/56 97 06/06/18 06:30 69 24 103/49 98 06/06/18 06:15 68 20 102/49 98 06/06/18 06:00 83 25 H 107/51 98 06/06/18 05:45 78 24 106/58 97 06/06/18 05:30 75 22 87/47 06/06/18 05:15 68 23 98/48 06/06/18 05:00 68 21 103/52 96 06/06/18 04:45 76 24 97/50 06/06/18 04:30 79 22 102/46 95 06/06/18 04:15 80 22 94/50 06/06/18 04:00 98.6 F 83 24 84/47 96 06/06/18 03:45 84 30 H 96/51 06/06/18 03:30 72 31 H 94/49 06/06/18 03:15 75 45 H 106/52 06/06/18 03:00 78 36 H 82/45 95 06/06/18 02:45 85 36 H 97/50 06/06/18 02:30 81 31 H 91/49 06/06/18 02:15 85 18 96/48 06/06/18 02:00 89 16 95/52 96 06/06/18 01:45 79 28 H 92/50 06/06/18 01:30 81 22 84/49 06/06/18 01:15 84 22 87/49 06/06/18 01:00 80 30 H 91/48 98 06/06/18 00:45 84 24 91/48 06/06/18 00:30 86 24 80/46 06/06/18 00:15 96 18 80/46 06/06/18 00:00 98.5 F 86 24 76/44 98 06/05/18 23:45 86 24 77/44 06/05/18 23:30 86 16 73/44 06/05/18 23:15 87 74/42 06/05/18 23:02 91 06/05/18 23:00 98.5 F 22 98 06/05/18 21:24 99.1 F 92 16 80/48 06/05/18 21:00 88 20 84/56 99 06/05/18 20:30 89 22 81/40 98 06/05/18 20:00 99.9 F H 123 H 22 99/56 97 06/05/18 19:00 126 H 22 105/65 99 06/05/18 18:15 129 H 24 99/48 95 06/05/18 18:00 102.5 F H 135 H 20 99/48 96 06/05/18 16:30 136 H 24 89/50 99 06/05/18 15:25 102.7 F H 124 H 20 184/93 96 Intake and Output 06/05/18 06/06/18 06/06/18 22:59 06:59 14:59 Intake Total 643.75 273 Output Total 130 75 Balance 513.75 198 Intake: IV 325 175 Magnesium Sulfate-D5w Pmx 100 100 1 gm In Dextrose/Water 1 100ml.bag @ 100 mls/hr IVPB Q1H SHEILA Rx#: [id number] Sodium Chloride 0.9% 1, 225 75 000 ml @ 75 mls/hr IV . [id number] STA Rx#:[id number] Intake, IV Titration 78.75 98 Amount Norepinephrine 4 mg In 78.75 98 Dextrose 5% in Water 250 ml @ Titrate IV .Q0M SHEILA Rx#:[id number] Oral 240 Output: Urine 130 75 Other: Voiding Method Indwelling Catheter Indwelling Catheter Weight 95.254 kg 104.9 kg No acute distress, oriented 3. Mildly tachypnea. HEENT examination is grossly unremarkable. Mucous membranes are moist. No oral lesions. Neck supple. Full range of motion. No adenopathy thyromegaly or neck vein distention. Cardiovascular examination reveals a irregular rhythm and rate. S1-S2 normal. The patient in atrial fibrillation. Heart rate about 100. Lungs reveal mostly clear breath sounds. A few scattered rhonchi. No wheezes or crackles noted. Abdomen soft bowel sounds are heard. No masses or tenderness. Extremities are intact. No cyanosis clubbing or edema. Skin is without rash or lesion. Neurologic examination is brief but nonfocal. Results - Laboratory Findings CBC and BMP: 06/06/18 04:46 06/06/18 04:46 PT/INR, D-dimer PT 12.5 sec (9.0-12.0) H 06/06/18 04:46 INR 1.3 (<1.2) H 06/06/18 04:46 Abnormal lab findings: Abnormal Labs 06/05/18 06/05/18 06/05/18 17:15 17:17 17:17 WBC 1.5 L* Hgb Hct RDW 17.6 H Plt Count 122 L Neutrophils # (Manual) Lymphocytes # 0.1 L Lymphocytes # (Manual) Metamyelocytes # (Man) PT INR Chloride Carbon Dioxide 21 L BUN 25 H Glucose 100 H POC Glucose (mg/dL) Plasma Lactic Acid Chente Calcium Phosphorus Magnesium Total Bilirubin 5.1 H Total Protein Albumin Urine Protein 1+ H Urine Blood Large H Ur Leukocyte Esterase Large H Urine RBC 59 H Urine WBC 116 H Urine Bacteria Few H Urine Mucus Occasional H 06/05/18 06/05/18 06/05/18 17:17 22:24 23:01 WBC Hgb Hct RDW Plt Count Neutrophils # (Manual) Lymphocytes # Lymphocytes # (Manual) Metamyelocytes # (Man) PT INR Chloride Carbon Dioxide BUN Glucose POC Glucose (mg/dL) 112 H Plasma Lactic Acid Chente 3.8 H* 4.6 H* Calcium Phosphorus Magnesium Total Bilirubin Total Protein Albumin Urine Protein Urine Blood Ur Leukocyte Esterase Urine RBC Urine WBC Urine Bacteria Urine Mucus 06/06/18 06/06/18 06/06/18 04:46 04:46 04:46 WBC 14.1 H Hgb 12.5 L Hct 38.6 L RDW 17.7 H Plt Count 92 L Neutrophils # (Manual) 11.80 H Lymphocytes # Lymphocytes # (Manual) 0.28 L Metamyelocytes # (Man) 1.55 H PT 12.5 H INR 1.3 H Chloride 111 H Carbon Dioxide 16 L BUN 27 H Glucose 139 H POC Glucose (mg/dL) Plasma Lactic Acid Chente Calcium 7.8 L Phosphorus 2.4 L Magnesium 1.2 L Total Bilirubin 5.4 H Total Protein 5.3 L Albumin 3.0 L Urine Protein Urine Blood Ur Leukocyte Esterase Urine RBC Urine WBC Urine Bacteria Urine Mucus 06/06/18 04:46 WBC Hgb Hct RDW Plt Count Neutrophils # (Manual) Lymphocytes # Lymphocytes # (Manual) Metamyelocytes # (Man) PT INR Chloride Carbon Dioxide BUN Glucose POC Glucose (mg/dL) Plasma Lactic Acid Chente 3.5 H* Calcium Phosphorus Magnesium Total Bilirubin Total Protein Albumin Urine Protein Urine Blood Ur Leukocyte Esterase Urine RBC Urine WBC Urine Bacteria Urine Mucus - Diagnostic Findings Chest x-ray: report reviewed, image reviewed (Labs x-rays and medications are all reviewed.) Assessment and Plan Assessment: Assessment Septic shock secondary to a urinary source. The patient recently had bladder stones removed surgically. He does have a Vasquez catheter in place. Has been seen by urology. History of chronic atrial fibrillation History of Nbjxr-Ouddv-Smkbl syndrome History of hypertension History of deafness History of DJD Previous history of kidney and bladder stones History of CAD with stent placement Multiple surgical procedures. Plan: Plan dated 06/06/2018 The patient's currently on antibiotics and fluid resuscitation and norepinephrine. The patient is doing a bit better than he was. We'll attempt to the norepinephrine as his blood pressure improves. Additional recommendations and suggestions are forthcoming. He's been seen by urology. White count 14.1 hemoglobin 12.5 hematocrit 38.6 and platelet count 92,000. PT 12.5 INR 1.3. Sodium and potassium were normal chloride is 111 CO2 16 and a gap is normal.x hyperchloremic non-anion gap metabolic acidosis. BUN/ creatinine were 27 and 1.16 Lactic acid was 3.5. The rest of the labs are reviewed. Urine doesn't suggest a infection. Large blood and large leukocyte esterase 116 WBCs and a few bacteria. Critical care time 34 minutes Time with Patient: Greater than 30
--- NOTE | 2018-06-06 08:03 | CONS ---
CONSULTATION Mr. Bañuelos is a 78-year-old male with a history of chronic persistent atrial fibrillation, history of coronary artery disease, followup with Dr. Sofia on a regular basis, who recently had surgery by Dr. Camara for removal of bladder stones. He went home but came back with fever, chills and was noted to be hypotensive in atrial fibrillation with rapid ventricular response. He denies any symptoms of dyspnea. No dizziness or palpitation. He denies any peripheral edema. No PND, no orthopnea. He had a prior history of heparin-induced thrombocytopenia. He is on IV Levophed at this time as well as IV fluid. His ventricular response is controlled. It was tachycardic in the emergency room. His urine output has been stable. His coronary risk factors are remarkable for hypertension, hyperlipidemia. He is nondiabetic and nonsmoker. MEDICATION: His medications at home include aspirin 81 mg daily, Zestril 20 mg twice a day, simvastatin 20 mg daily. REVIEW OF SYSTEMS: RESPIRATORY SYSTEM: No recent wheezing or cough. He has no history of obstructive lung disease. GI SYSTEM: No recent GI bleed. No peptic ulcer disease. SYSTEM: He had recent hematuria post surgery that resolved. Mild dysuria. He had bladder calculi removed as noted by Dr. Camara. NERVOUS SYSTEM: No history of stroke or seizure. PHYSICAL EXAMINATION: He is a 78-year-old male, alert, oriented, in no apparent distress. Blood pressure 107/50 with the heart in the 80s. On presentation, his blood pressure was in the 70s. HEAD: Normocephalic. EYES: Sclerae anicteric. NECK: Good carotid upstroke. No bruit. No jugular venous distention. LUNGS: Clear to auscultation. HEART: Irregular, irregular. S1, S2. No S3 with a systolic murmur heard at the base. No diastolic murmur. No rub. ABDOMEN: Soft, nontender. Positive bowel sounds. Mild tenderness suprapubic at the area of the incision. EXTREMITIES: No edema. LAB DATA: Initial white blood cell 1.5, up to 14.1 at this time. Platelet count of 92,000. Hemoglobin of 12.5. His BUN and creatinine 27 and 1.16. Potassium 4.1. His lactic acid was up to 4.6. His EKG revealed atrial fibrillation with a rate of 136 and left axis deviation, poor R progression, nonspecific ST-T wave changes. IMPRESSION: 1. Sepsis, most likely related to his recent surgery. 2. Atrial fibrillation, persistent chronic, not anticoagulated. The patient had prior history of bleeding. 3. History of coronary artery disease, stable. 4. Hypotension related to the sepsis. 5. History of hyperlipidemia. RECOMMENDATION: From the cardiac standpoint, we will continue on the intravenous fluid. We will try to wean the IV norepinephrine off. However, he had an echocardiogram and stress test recently that were reported to be normal and I will review of this report. Once he is off his pressors then further recommendation will be made regarding re-initiating lisinopril. Thank you for this consult. We will follow with you. LUHODL / IJN: [id number] /
[2018-06-06] MEDS: FAMOTIDINE 20 MG/2 ML VIAL IV SCH ×2 (08:27→20:51)
[2018-06-06] MEDS: ASPIRIN 81 MG PO SCH (08:27)
[2018-06-06] MEDS: SODIUM CHLORIDE 0.9% 1,000 ML IV SCH ×2 (08:29→20:36)
[2018-06-06] MEDS ORDERED: cefTRIAXone IN SWFI 1,000 MG/10 ML SYRINGE IVP SCH (09:00)
--- NOTE | 2018-06-06 10:41 | XR ---
EXAMINATION TYPE: XR chest 1V portable DATE OF EXAM: 06/06/2018 COMPARISON: 06/05/2018 HISTORY: Shortness of breath TECHNIQUE: Single frontal view of the chest is obtained. FINDINGS: There is redemonstration of a left basilar opacity, unchanged from the prior and blunted l eft costophrenic angle. There is no new focal air space opacity, pleural effusion, or pneumothorax se en. The cardiac silhouette size is again enlarged. Increasing vascular prominence is seen within the right infrahilar region suggesting vascular pulmonary congestion. The osseous structures are intact. IMPRESSION: Interval development of mild pulmonary vascular congestion, likely on the basis of conge stive heart failure. Unchanged left basilar opacity at the costophrenic angle and blunting likely rel ated to a trace pleural effusion and atelectasis.
[2018-06-06] MEDS ORDERED: TERBUTALINE 1 MG/ML VIAL SQ STA (13:09)
[2018-06-06] MEDS: CEFEPIME 2 GM in SODIUM CHLORIDE 0.9% 50 ML IVPB SCH ×2 (13:10→15:56)
[2018-06-06] MEDS: ASCORBIC ACID 500 MG TAB PO SCH (13:11)
[2018-06-06] MEDS: MULTIVITAMINS, THERA 1 EACH TAB PO SCH (13:11)
[2018-06-06] MEDS ORDERED: TERBUTALINE FOR EXTRAVASATION 1 MG/ML VIAL SQ STA (14:04)
--- NOTE | 2018-06-06 14:29 | P.HPIM ---
History of Present Illness 78-year-old male with a history of recent bladder stone removal, admitted to the hospital with a diagnosis of possible sepsis. The patient apparently had abrupt onset of shakes and fever. He was found have a temperature of 102. He received quite a bit of fluid resuscitation in the emergency department but despite that became hypotensive and was started on norepinephrine. The patient' s currently on about 16 mcg/m of norepinephrine. Mucous membranes patient received more than 4 L of fluid. The patient's a little bit tachypnea. Mildly tachycardic. Normotensive currently. The patient has been seen by urology. Has a Vasquez catheter in place. He does have a history of kidney stones and bladder stones. He's had a previous history of heart catheterization with stent placement hernia repair joint replacement and other orthopedic procedures. Patient had urine cultures are positive for gram-negative bacilli. Patient is on ceftriaxone which was switched to cefepime because of his recent hospitalization high risk for pseudomonal infections, the spectrum can be narrowed down once we have the organism on the cultures. Review of Systems REVIEW OF SYSTEMS: CONSTITUTIONAL: As mentioned in HPI HEENT: No recent visual problems or hearing problems. Denied any sore throat. CARDIOVASCULAR: No chest pain, orthopnea, PND, no palpitations, no syncope. PULMONARY: No shortness of breath, no cough, no hemoptysis. GASTROINTESTINAL: No diarrhea, no nausea, no vomiting, no abdominal pain. Normoactive bowel sounds. NEUROLOGICAL: No headaches, no weakness, no numbness. HEMATOLOGICAL: Denies any bleeding or petechiae. GENITOURINARY: Denies any burning micturition, frequency, or urgency. MUSCULOSKELETAL/RHEUMATOLOGICAL: Denies any joint pain, swelling, or any muscle pain. ENDOCRINE: Denies any polyuria or polydipsia. The rest of the 14-point review of systems is negative. Past Medical History Past Medical History: Atrial Fibrillation, Hearing Disorder / Deafness, Hyperlipidemia, Hypertension, Osteoarthritis (OA) Additional Past Medical History / Comment(s): Hx: HHT, kidney stones, bladder stones History of Any Multi-Drug Resistant Organisms: None Reported Past Surgical History: Heart Catheterization With Stent, Hernia Repair, Joint Replacement, Orthopedic Surgery Additional Past Surgical History / Comment(s): lt knee replacement, jessy heel spurs, umbilical hernia Past Anesthesia/Blood Transfusion Reactions: Previous Problems w/ Anesthesia Additional Past Anesthesia/Blood Transfusion Reaction / Comment(s): "slow waking up" "have to keep my head elevated so I don't get nosebleeds" Date of Last Stent Placement:: 2000 Past Psychological History: No Psychological Hx Reported Smoking Status: Never smoker Past Alcohol Use History: None Reported Past Drug Use History: None Reported - Past Family History Brother(s) Family Medical History: Blood Disorder Additional Family Medical History / Comment(s): 2 brothers with HHT Sister(s) Family Medical History: Blood Disorder Additional Family Medical History / Comment(s): 2 sisters HHT Father Additional Family Medical History / Comment(s): hht Mother Family Medical History: Diabetes Mellitus Medications and Allergies Home Medications Medication Instructions Recorded Confirmed Type Aspirin 81 mg PO DAILY chew 06/14/15 06/05/18 Rx Multivitamins, Thera [Multivitamin 1 each PO DAILY@1200 tab 06/14/15 06/05/18 Rx (formulary)] Ascorbic Acid [Vitamin C] 250 mg PO DAILY 05/24/18 06/05/18 History Lisinopril [Zestril] 20 mg PO BID 05/24/18 06/05/18 History Simvastatin [Zocor] 20 mg PO HS 05/24/18 06/05/18 History HYDROcodone/APAP 5-325MG [[place] 1 tab PO Q6HR PRN 3 Days #12 tab 06/02/18 Rx 5-325] Allergies Allergy/AdvReac Type Severity Reaction Status Date / Time No Known Allergies Allergy Verified 06/05/18 17:06 Physical Exam Vitals: Vital Signs Temp Pulse Resp BP Pulse Ox 06/06/18 14:15 94 21 106/55 98 06/06/18 14:00 91 21 113/46 95 06/06/18 13:45 89 22 97/49 99 06/06/18 13:30 83 23 104/50 100 06/06/18 13:15 86 23 100/58 99 06/06/18 13:00 80 21 103/54 100 06/06/18 12:45 79 20 107/52 99 06/06/18 12:30 74 23 87/59 97 06/06/18 12:15 74 22 93/53 98 06/06/18 12:00 78 21 103/55 97 06/06/18 11:45 81 22 104/51 98 06/06/18 11:30 68 22 92/50 98 06/06/18 11:15 64 20 100/49 97 06/06/18 11:00 66 21 98/52 99 06/06/18 10:45 55 L 23 107/51 98 06/06/18 10:30 61 21 112/53 97 06/06/18 10:15 64 24 109/50 98 06/06/18 10:00 59 L 23 81/44 98 06/06/18 09:45 74 24 102/57 97 06/06/18 09:30 76 20 112/58 97 06/06/18 09:15 69 21 107/55 99 06/06/18 09:00 73 21 103/51 97 06/06/18 08:45 87 20 92/47 98 06/06/18 08:30 85 21 110/54 97 06/06/18 08:15 98.1 F 81 22 118/55 97 06/06/18 08:00 90 21 103/52 97 06/06/18 07:45 71 20 88/53 97 06/06/18 07:30 79 20 108/54 96 06/06/18 07:15 72 18 116/58 97 06/06/18 07:00 78 22 106/53 97 06/06/18 06:45 72 24 109/56 97 06/06/18 06:30 69 24 103/49 98 06/06/18 06:15 68 20 102/49 98 06/06/18 06:00 83 25 H 107/51 98 06/06/18 05:45 78 24 106/58 97 06/06/18 05:30 75 22 87/47 06/06/18 05:15 68 23 98/48 06/06/18 05:00 68 21 103/52 96 06/06/18 04:45 76 24 97/50 06/06/18 04:30 79 22 102/46 95 06/06/18 04:15 80 22 94/50 06/06/18 04:00 98.6 F 83 24 84/47 96 06/06/18 03:45 84 30 H 96/51 06/06/18 03:30 72 31 H 94/49 06/06/18 03:15 75 45 H 106/52 06/06/18 03:00 78 36 H 82/45 95 07/26/18 02:45 85 36 H 97/50 06/06/18 02:30 81 31 H 91/49 06/06/18 02:15 85 18 96/48 06/06/18 02:00 89 16 95/52 96 06/06/18 01:45 79 28 H 92/50 06/06/18 01:30 81 22 84/49 06/06/18 01:15 84 22 87/49 06/06/18 01:00 80 30 H 91/48 98 06/06/18 00:45 84 24 91/48 06/06/18 00:30 86 24 80/46 06/06/18 00:15 96 18 80/46 06/06/18 00:00 98.5 F 86 24 76/44 98 06/05/18 23:45 86 24 77/44 06/05/18 23:30 86 16 73/44 06/05/18 23:15 87 74/42 06/05/18 23:02 91 06/05/18 23:00 98.5 F 22 98 06/05/18 21:24 99.1 F 92 16 80/48 06/05/18 21:00 88 20 84/56 99 06/05/18 20:30 89 22 81/40 98 06/05/18 20:00 99.9 F H 123 H 22 99/56 97 06/05/18 19:00 126 H 22 105/65 99 06/05/18 18:15 129 H 24 99/48 95 06/05/18 18:00 102.5 F H 135 H 20 99/48 96 06/05/18 16:30 136 H 24 89/50 99 06/05/18 15:25 102.7 F H 124 H 20 184/93 96 Intake and Output 06/05/18 06/06/18 06/06/18 22:59 06:59 14:59 Intake Total 643.75 1691.25 Output Total 130 700 Balance 513.75 991.25 Intake: IV 325 725 Cefepime 2 gm In Sodium 50 Chloride 0.9% 50 ml @ 100 mls/hr IVPB Q8HR [facility] Rx# :[id number] Magnesium Sulfate-D5w Pmx 100 300 1 gm In Dextrose/Water 1 100ml.bag @ 100 mls/hr IVPB Q1H [facility] Rx#: [id number] Sodium Chloride 0.9% 1, 225 375 000 ml @ 75 mls/hr IV . [id number] [facility] Rx#:[id number] Intake, IV Titration 78.75 361.25 Amount Norepinephrine 4 mg In 78.75 361.25 Dextrose 5% in Water 250 ml @ Titrate IV .Q0M [facility] Rx#:[id number] Oral 240 605 Output: Urine 130 700 Other: Voiding Method Indwelling Catheter Indwelling Catheter Indwelling Catheter Weight 95.254 kg 104.9 kg PHYSICAL EXAMINATION: GENERAL: Patient appears to be tired fatigue HEENT: Pupils are round and equally reacting to light. EOMI. No scleral icterus. No conjunctival pallor. Normocephalic, atraumatic. No pharyngeal erythema. No thyromegaly. CARDIOVASCULAR: S1 and S2 present. No murmurs, rubs, or gallops. Irregularly irregular rhythm PULMONARY: Chest is clear to auscultation, no wheezing or crackles. ABDOMEN: Soft, nontender, nondistended, normoactive bowel sounds. No palpable organomegaly. MUSCULOSKELETAL: No joint swelling or deformity. EXTREMITIES: No cyanosis, clubbing, or pedal edema. NEUROLOGICAL: Gross neurological examination did not reveal any focal deficits. SKIN: No rashes. Results CBC & Chem 7: 06/06/18 04:46 06/06/18 04:46 Labs: Abnormal Lab Results - Last 24 Hours (Table) 06/05/18 06/05/18 06/05/18 Range/Units 17:15 17:17 17:17 WBC 1.5 L* (3.8-10.6) k/uL Hgb (13.0-17.5) gm/dL Hct (39.0-53.0) % RDW 17.6 H (11.5-15.5) % Plt Count 122 L (150-450) k/uL Neutrophils # (Manual) (1.3-7.7) k/uL Lymphocytes # 0.1 L (1.0-4.8) k/uL Lymphocytes # (Manual) (1.0-4.8) k/uL Metamyelocytes # (Man) (0) k/uL PT (9.0-12.0) sec INR (<1.2) Chloride (98-107) mmol/L Carbon Dioxide 21 L (22-30) mmol/L BUN 25 H (9-20) mg/dL Glucose 100 H (74-99) mg/dL POC Glucose (mg/dL) (75-99) mg/dL Plasma Lactic Acid Chente (0.7-2.0) mmol/L Calcium (8.4-10.2) mg/dL Phosphorus (2.5-4.5) mg/dL Magnesium (1.6-2.3) mg/dL Total Bilirubin 5.1 H (0.2-1.3) mg/dL Total Protein (6.3-8.2) g/dL Albumin (3.5-5.0) g/dL Urine Protein 1+ H (Negative) Urine Blood Large H (Negative) Ur Leukocyte Esterase Large H (Negative) Urine RBC 59 H (0-5) /hpf Urine WBC 116 H (0-5) /hpf Urine Bacteria Few H (None) /hpf Urine Mucus Occasional H (None) /hpf 06/05/18 06/05/18 06/05/18 Range/Units 17:17 22:24 23:01 WBC (3.8-10.6) k/uL Hgb (13.0-17.5) gm/dL Hct (39.0-53.0) % RDW (11.5-15.5) % Plt Count (150-450) k/uL Neutrophils # (Manual) (1.3-7.7) k/uL Lymphocytes # (1.0-4.8) k/uL Lymphocytes # (Manual) (1.0-4.8) k/uL Metamyelocytes # (Man) (0) k/uL PT (9.0-12.0) sec INR (<1.2) Chloride (98-107) mmol/L Carbon Dioxide (22-30) mmol/L BUN (9-20) mg/dL Glucose (74-99) mg/dL POC Glucose (mg/dL) 112 H (75-99) mg/dL Plasma Lactic Acid Chente 3.8 H* 4.6 H* (0.7-2.0) mmol/L Calcium (8.4-10.2) mg/dL Phosphorus (2.5-4.5) mg/dL Magnesium (1.6-2.3) mg/dL Total Bilirubin (0.2-1.3) mg/dL Total Protein (6.3-8.2) g/dL Albumin (3.5-5.0) g/dL Urine Protein (Negative) Urine Blood (Negative) Ur Leukocyte Esterase (Negative) Urine RBC (0-5) /hpf Urine WBC (0-5) /hpf Urine Bacteria (None) /hpf Urine Mucus (None) /hpf 06/06/18 06/06/18 06/06/18 Range/Units 04:46 04:46 04:46 WBC 14.1 H (3.8-10.6) k/uL Hgb 12.5 L (13.0-17.5) gm/dL Hct 38.6 L (39.0-53.0) % RDW 17.7 H (11.5-15.5) % Plt Count 92 L (150-450) k/uL Neutrophils # (Manual) 11.80 H (1.3-7.7) k/uL Lymphocytes # (1.0-4.8) k/uL Lymphocytes # (Manual) 0.28 L (1.0-4.8) k/uL Metamyelocytes # (Man) 1.55 H (0) k/uL PT 12.5 H (9.0-12.0) sec INR 1.3 H (<1.2) Chloride 111 H (98-107) mmol/L Carbon Dioxide 16 L (22-30) mmol/L BUN 27 H (9-20) mg/dL Glucose 139 H (74-99) mg/dL POC Glucose (mg/dL) (75-99) mg/dL Plasma Lactic Acid Chente (0.7-2.0) mmol/L Calcium 7.8 L (8.4-10.2) mg/dL Phosphorus 2.4 L (2.5-4.5) mg/dL Magnesium 1.2 L (1.6-2.3) mg/dL Total Bilirubin 5.4 H (0.2-1.3) mg/dL Total Protein 5.3 L (6.3-8.2) g/dL Albumin 3.0 L (3.5-5.0) g/dL Urine Protein (Negative) Urine Blood (Negative) Ur Leukocyte Esterase (Negative) Urine RBC (0-5) /hpf Urine WBC (0-5) /hpf Urine Bacteria (None) /hpf Urine Mucus (None) /hpf 06/06/18 06/06/18 06/06/18 Range/Units 04:46 09:06 13:15 WBC (3.8-10.6) k/uL Hgb (13.0-17.5) gm/dL Hct (39.0-53.0) % RDW (11.5-15.5) % Plt Count (150-450) k/uL Neutrophils # (Manual) (1.3-7.7) k/uL Lymphocytes # (1.0-4.8) k/uL Lymphocytes # (Manual) (1.0-4.8) k/uL Metamyelocytes # (Man) (0) k/uL PT (9.0-12.0) sec INR (<1.2) Chloride (98-107) mmol/L Carbon Dioxide (22-30) mmol/L BUN (9-20) mg/dL Glucose (74-99) mg/dL POC Glucose (mg/dL) (75-99) mg/dL Plasma Lactic Acid Chente 3.5 H* 5.7 H* 4.1 H* (0.7-2.0) mmol/L Calcium (8.4-10.2) mg/dL Phosphorus (2.5-4.5) mg/dL Magnesium (1.6-2.3) mg/dL Total Bilirubin (0.2-1.3) mg/dL Total Protein (6.3-8.2) g/dL Albumin (3.5-5.0) g/dL Urine Protein (Negative) Urine Blood (Negative) Ur Leukocyte Esterase (Negative) Urine RBC (0-5) /hpf Urine WBC (0-5) /hpf Urine Bacteria (None) /hpf Urine Mucus (None) /hpf Microbiology - Last 24 Hours (Table) 06/05/18 17:18 Blood Culture Gram Stain - Preliminary Blood 06/05/18 17:17 Blood Culture - Final Blood Assessment and Plan Plan: -Septic shock and bacteremia with gram-negative bacilli secondary to urinary tract infection complicated urinary tract infection. Patient is on norepinephrine IV fluids patient is on cefepime awaiting urine cultures -Atrial fibrillation presently rate controlled patient is not on anticoagulation echocardiogram will be obtained evaluated by cardiology -Hyperlipidemia -Hypertension patient is hypotensive secondary to septic shock -History of nephrolithiasis.
[2018-06-06] MEDS ORDERED: SODIUM CHLORIDE 0.9% 2,000 ML IV ONE (14:59)
[2018-06-06] MEDS ORDERED: FUROSEMIDE 10 MG/ML 2 ML VIAL IV ONE (15:55)
[2018-06-06] MEDS: ATORVASTATIN 10 MG TAB PO SCH (20:51)
[2018-06-07] MEDS: CEFEPIME 2 GM in SODIUM CHLORIDE 0.9% 50 ML IVPB SCH ×4 (00:19→23:22)
[2018-06-07 02:20] LABS: Anisocytosis Slight; HGB 11.3 gm/dL (13.0-17.5); Hypochromasia Slight; MCH 25.7 pg (25.0-35.0); MCHC 30.5 g/dL (31.0-37.0); MCV 84.2 fL (80.0-100.0); Mean Platelet Volume 8.7; Microcytosis Slight; RDW 18.2 % (11.5-15.5); WBC 5.7 k/uL (3.8-10.6)
[2018-06-07 02:23] LABS: Anion Gap 9 mmol/L; Blood Urea Nitrogen 26 mg/dL (9-20); Calcium 7.6 mg/dL (8.4-10.2); Carbon Dioxide 19 mmol/L (22-30); Chloride 111 mmol/L (98-107); Glucose 201 mg/dL (74-99); Magnesium 2.2 mg/dL (1.6-2.3); Phosphorus 2.2 mg/dL (2.5-4.5); Potassium 4.3 mmol/L (3.5-5.1); Sodium 139 mmol/L (137-145)
[2018-06-07 02:26] LABS: Platelet Count 68 k/uL (150-450)
[2018-06-07] MEDS ORDERED: SODIUM PHOSPHATE 10 MMOL in SODIUM CHLORIDE 0.9% 250 ML IVPB ONE (03:30)
--- NOTE | 2018-06-07 08:05 | XR ---
EXAMINATION TYPE: XR chest 1V portable DATE OF EXAM: 06/07/2018 COMPARISON: 06/06/2018 INDICATION: Shortness of breath TECHNIQUE: Single frontal view of the chest is obtained. FINDINGS: The heart size is normal. The pulmonary vasculature is normal. There is a mild infiltrate developing at the right base. Mild subsegmental atelectasis remains at the left base. There is blunting of the left costophrenic angle. IMPRESSION: 1. Mild developing right lower lobe infiltrate. Correlate for atelectasis and pneumonia. 2. Subsegmental atelectasis or infiltrate at the left base present previously
[2018-06-07] MEDS: FAMOTIDINE 20 MG/2 ML VIAL IV SCH ×2 (08:35→20:31)
[2018-06-07] MEDS: ASPIRIN 81 MG PO SCH (08:35)
[2018-06-07] MEDS: ASCORBIC ACID 500 MG TAB PO SCH (08:35)
--- NOTE | 2018-06-07 08:49 | PN ---
PROGRESS NOTE Mr. Bañuelos is a 78-year-old male with known history of persistent atrial fibrillation, not anticoagulated because of prior episode of bleeding, who presented with sepsis a few days following removal of a bladder stone. He is feeling better today. His chills are better. He is denying any symptoms of chest pain. He denies any dizziness. He has some dyspnea on exertion. He has some cough. He denies any nausea. Prior to his procedure, he underwent echocardiogram and a stress test that revealed no evidence of inducible ischemia and his left ventricular systolic function has been preserved. At this time, he continues to be on aspirin 81 mg daily, Lipitor 10 mg daily. He received 1 dose of diuretics yesterday. PHYSICAL EXAMINATION: Blood pressure running in the one teens to 120s with the heart rate in the 80s. LUNGS: No wheezes or rales. HEART: Irregular, irregular. S1, S2. No S3. With a systolic murmur. No diastolic murmur. ABDOMEN: Soft and nontender. EXTREMITIES: No edema. LAB DATA: BUN and creatinine 26 and 0.9. Hemoglobin 11.3, white blood cell 5.7. Potassium of 4.3. IMPRESSION: 1. Urosepsis following surgical intervention. 2. Persistent chronic atrial fibrillation, not anticoagulated because of prior episode of bleeding. 3. History of hypertension. RECOMMENDATION: From the cardiac standpoint, he is stable. We will continue present therapy. Depending on his blood pressure, adjustment of his antihypertensive regimen will be made. MMODL / IJN: [id number] /
[2018-06-07] MEDS ORDERED: FUROSEMIDE 10 MG/ML 4 ML VIAL IV STA (09:11)
--- NOTE | 2018-06-07 09:12 | P.PN ---
Subjective Progress Note Date: 06/07/18 Principal diagnosis: Acute urinary tract infection with sepsis, gram-negative bacteremia Pulmonary consult dated 06/06/2018 78-year-old male with a history of recent bladder stone removal, admitted to the hospital with a diagnosis of possible sepsis. The patient apparently had abrupt onset of shakes and fever. He was found have a temperature of 102. He received quite a bit of fluid resuscitation in the emergency department but despite that became hypotensive and was started on norepinephrine. The patient' s currently on about 16 mcg/m of norepinephrine. Mucous membranes patient received more than 4 L of fluid. The patient's a little bit tachypnea. Mildly tachycardic. Normotensive currently. The patient has been seen by urology. Has a Vasquez catheter in place. The patient's history is that of atrial fibrillation, chronically, deafness, hyperlipidemia, hypertension and DJD. He does have a history of kidney stones and bladder stones. He's had a previous history of heart catheterization with stent placement hernia repair joint replacement and other orthopedic procedures. On 06/07/2018 patient seen again in follow-up in the intensive care unit, he is off the levofed drip, it has been off since 2:00 this morning. Maintenance IV fluid is 0.9 normal saline at a rate of 75 ML per hour, no other drips. He is awake, alert, appears to be less tachypneic on today's exam, still complaining of slight shortness of breath, only occasional cough, nonproductive. Lung sounds are diminished, a few expiratory wheezes, no rhonchi, no rales. Yesterday afternoon we gave the patient 20 mg of Lasix for shortness of breath related to fluid overload, and subsequently patient's breathing has improved. Today's chest x-ray has been reviewed and shows a developing right lower lobe infiltrate, likely related to atelectasis, although pneumonia could not be entirely ruled out. Antibiotic coverage is in the form of cefepime, blood culture was positive for gram-negative bacilli, final culture is pending. His labs were reviewed, WBC is 5.7, hemoglobin is 11.3, chloride is 111, CO2 is 19, B1 is 26, creatinine 0.90. Patient is developing hyperchloremic metabolic acidosis likely related to aggressive fluid resuscitation with 0.9 normal saline. Today's lactic acid is down to 2.5, patient is nonoliguric, and urine output is in the range of 50-100 ML per hour. He is tolerating oral intake. Remains tachypneic, will benefit from additional dose of IV Lasix today. Otherwise we'll continue with current treatment. Objective - Vital Signs Vital signs: Vital Signs Temp 98.1 F 06/07/18 04:00 Pulse 89 06/07/18 07:00 Resp 36 H 06/07/18 07:00 BP 118/61 06/07/18 07:00 Pulse Ox 97 06/07/18 07:20 Intake & Output 06/06/18 06/07/18 06/07/18 18:59 06:59 18:59 Intake Total 2941.25 1113.000 75 Output Total 2200 1450 90 Balance 741.25 -337.000 -15 Weight 101.3 kg Intake: IV 1975 1050 75 Cefepime 2 gm In Sodium 150 50 Chloride 0.9% 50 ml @ 100 mls/hr IVPB Q8HR [facility] Rx# :[id number] Magnesium Sulfate-D5w Pmx 300 1 gm In Dextrose/Water 1 100ml.bag @ 100 mls/hr IVPB Q1H [facility] Rx#: [id number] Sodium Chloride 0.9% 1, 525 750 75 000 ml @ 75 mls/hr IV . [id number] [facility] Rx#:[id number] Sodium Chloride 0.9% 1, 1000 000 ml @ 999 mls/hr IV . Q1H1M [facility] Rx#:[id number] Sodium Phosphate 10 mmol 250 In Sodium Chloride 0.9% 250 ml @ 125 mls/hr IVPB ONCE [facility] Rx#:[id number] Intake, IV Titration 361.25 63.000 Amount Norepinephrine 4 mg In 361.25 63.000 Dextrose 5% in Water 250 ml @ Titrate IV .Q0M [facility] Rx#:[id number] Oral 605 Output: Urine 2200 1450 90 Other: Voiding Method Indwelling Catheter Indwelling Catheter - Exam No acute distress, oriented 3. Mildly tachypnea. HEENT examination is grossly unremarkable. Mucous membranes are moist. No oral lesions. Neck supple. Full range of motion. No adenopathy thyromegaly or neck vein distention. Cardiovascular examination reveals a irregular rhythm and rate. S1-S2 normal. The patient in atrial fibrillation. Heart rate about 100. Lungs reveal mostly clear breath sounds. A few scattered rhonchi. No wheezes or crackles noted. Abdomen soft bowel sounds are heard. No masses or tenderness. There is a surgical incision on the mid lower abdomen, is clean dry and intact Extremities are intact. No cyanosis clubbing or edema. Skin is without rash or lesion. Neurologic examination is brief but nonfocal. - Labs CBC & Chem 7: 06/07/18 02:03 06/07/18 02:03 Labs: Abnormal Lab Results - Last 24 Hours (Table) 06/06/18 06/06/18 06/06/18 Range/Units 09:06 13:15 21:57 Hgb (13.0-17.5) gm/dL Hct (39.0-53.0) % MCHC (31.0-37.0) g/dL RDW (11.5-15.5) % Plt Count (150-450) k/uL Chloride (98-107) mmol/L Carbon Dioxide (22-30) mmol/L BUN (9-20) mg/dL Glucose (74-99) mg/dL Plasma Lactic Acid Chente 5.7 H* 4.1 H* 3.9 H* (0.7-2.0) mmol/L Calcium (8.4-10.2) mg/dL Phosphorus (2.5-4.5) mg/dL 06/07/18 06/07/18 06/07/18 Range/Units 01:50 02:03 02:03 Hgb 11.3 L (13.0-17.5) gm/dL Hct 37.0 L (39.0-53.0) % MCHC 30.5 L (31.0-37.0) g/dL RDW 18.2 H (11.5-15.5) % Plt Count 68 L (150-450) k/uL Chloride 111 H (98-107) mmol/L Carbon Dioxide 19 L (22-30) mmol/L BUN 26 H (9-20) mg/dL Glucose 201 H (74-99) mg/dL Plasma Lactic Acid Chente 2.5 H* (0.7-2.0) mmol/L Calcium 7.6 L (8.4-10.2) mg/dL Phosphorus 2.2 L (2.5-4.5) mg/dL Microbiology - Last 24 Hours (Table) 06/05/18 17:18 Blood Culture Gram Stain - Preliminary Blood Blood Culture - Preliminary Gram Neg Bacilli 06/05/18 17:17 Blood Culture - Final Blood Assessment and Plan Plan: Assessment: Septic shock secondary to a urinary source. The patient recently had bladder stones removed surgically. He does have a Vasquez catheter in place. Has been seen by urology. Gram-negative bacteremia, final culture is pending Non-anion gap hyperchloremic metabolic acidosis History of chronic atrial fibrillation History of Bawpg-Yfreu-Hgjej syndrome History of hypertension History of deafness History of DJD Previous history of kidney and bladder stones History of CAD with stent placement Multiple surgical procedures. Plan: We will give the patient 40 of Lasix, chest x-ray shows mild developing right lower lobe infiltrate, probably related to atelectasis, although pneumonia could not be entirely ruled out. We'll switch the IV fluids to half-normal saline at a rate of 75 ML per hour, continue current abiotic coverage, still awaiting the results of final cultures. Continue deep breathing and coughing, monitor labs, monitor vital signs, urine output. I performed a history & physical examination of the patient and discussed their management with my nurse practitioner, Shraddha Sarabia. I reviewed the nurse practitioner's note and agree with the documented findings and plan of care. Lung sounds are diminished, with a few scattered expiratory wheezes. The findings and the impression was discussed with the patient. I attest to the documentation by the nurse practitioner. Time with Patient: Greater than 30
[2018-06-07] MEDS: SODIUM CHLORIDE 0.45% 1,000 ML IV SCH ×2 (09:50→20:34)
[2018-06-07] MEDS: MULTIVITAMINS, THERA 1 EACH TAB PO SCH (13:09)
[2018-06-07] MEDS: ATORVASTATIN 10 MG TAB PO SCH (20:31)
[2018-06-08 04:55] LABS: Anisocytosis Slight; Basophils % (A) 0 %; Eosinophils % (A) 1 %; HCT 37.4 % (39.0-53.0); HGB 11.7 gm/dL (13.0-17.5); Hypochromasia Slight; Lymphocytes # (A) 0.4 k/uL (1.0-4.8); Lymphocytes % (A) 6 %; MCHC 31.4 g/dL (31.0-37.0); MCV 82.9 fL (80.0-100.0); Mean Platelet Volume 8.5; Microcytosis Slight; Monocytes # (A) 0.2 k/uL (0-1.0); Monocytes % (A) 4 %; Neutrophils # (A) 5.7 k/uL (1.3-7.7); Neutrophils % (A) 88 %; RBC 4.51 m/uL (4.30-5.90); RDW 17.7 % (11.5-15.5); WBC 6.6 k/uL (3.8-10.6)
[2018-06-08 05:05] LABS: Platelet Count 90 k/uL (150-450)
[2018-06-08 05:14] LABS: Anion Gap 8 mmol/L; Blood Urea Nitrogen 26 mg/dL (9-20); Calcium 7.9 mg/dL (8.4-10.2); Carbon Dioxide 23 mmol/L (22-30); Chloride 106 mmol/L (98-107); Glucose 149 mg/dL (74-99); Phosphorus 1.7 mg/dL (2.5-4.5); Sodium 137 mmol/L (137-145)
[2018-06-08] MEDS: SODIUM PHOSPHATE 10 MMOL in SODIUM CHLORIDE 0.9% 250 ML IVPB SCH ×2 (05:42→08:20)
--- NOTE | 2018-06-08 07:34 | P.PN ---
Subjective 78-year-old male with a history of recent bladder stone removal, admitted to the hospital with a diagnosis of possible sepsis. The patient apparently had abrupt onset of shakes and fever. He was found have a temperature of 102. He received quite a bit of fluid resuscitation in the emergency department but despite that became hypotensive and was started on norepinephrine. The patient' s currently on about 16 mcg/m of norepinephrine. Mucous membranes patient received more than 4 L of fluid. The patient's a little bit tachypnea. Mildly tachycardic. Normotensive currently. The patient has been seen by urology. Has a Vasquez catheter in place. He does have a history of kidney stones and bladder stones. He's had a previous history of heart catheterization with stent placement hernia repair joint replacement and other orthopedic procedures. Patient had urine cultures are positive for gram-negative bacilli. Patient is on ceftriaxone which was switched to cefepime because of his recent hospitalization high risk for pseudomonal infections, the spectrum can be narrowed down once we have the organism on the cultures. 06/08/2018 Patient was admitted to the ICU with vascular shock. He needed pressors. Currently he is off Levophed. Continue on intravenous fluids patient still dyspneic. Chest x-ray shows right lower lobe infiltrate. Patient is on antibiotics patient reviewing the lab shows no leukocytosis. His abdomen mildly anemic at 11.3. But he has low platelet count of 68 which needs to be monitored. Sodium 139. Potassium 4.3. And creatinine is 2.2. Patient lactic acid was trending down from 3.9 to 2.5. Follow-up culture results Review of Systems REVIEW OF SYSTEMS: CONSTITUTIONAL: As mentioned in HPI HEENT: No recent visual problems or hearing problems. Denied any sore throat. CARDIOVASCULAR: No chest pain, orthopnea, PND, no palpitations, no syncope. PULMONARY: No shortness of breath, no cough, no hemoptysis. GASTROINTESTINAL: No diarrhea, no nausea, no vomiting, no abdominal pain. Normoactive bowel sounds. NEUROLOGICAL: No headaches, no weakness, no numbness. HEMATOLOGICAL: Denies any bleeding or petechiae. GENITOURINARY: Denies any burning micturition, frequency, or urgency. MUSCULOSKELETAL/RHEUMATOLOGICAL: Denies any joint pain, swelling, or any muscle pain. ENDOCRINE: Denies any polyuria or polydipsia. The rest of the 14-point review of systems is negative. Objective - Vital Signs Vital signs: Vital Signs Temp 98.2 F 06/07/18 20:00 Pulse 78 06/07/18 22:00 Resp 27 H 06/07/18 22:00 BP 111/59 06/07/18 22:00 Pulse Ox 95 06/07/18 22:00 Intake & Output 06/07/18 06/07/18 06/08/18 06:59 18:59 06:59 Intake Total 2980.788 2731 375 Output Total 1450 3290 440 Balance -337.000 -2215 -65 Weight 101.3 kg Intake: IV 1050 400 300 Cefepime 2 gm In Sodium 50 100 Chloride 0.9% 50 ml @ 100 mls/hr IVPB Q8HR [facility] Rx# :[id number] Sodium Chloride 0.45% 1, 300 000 ml @ 75 mls/hr IV . [id number] [facility] Rx#:[id number] Sodium Chloride 0.9% 1, 750 300 000 ml @ 75 mls/hr IV . [id number] [facility] Rx#:[id number] Sodium Phosphate 10 mmol 250 In Sodium Chloride 0.9% 250 ml @ 125 mls/hr IVPB ONCE ONE Rx#:[id number] Intake, IV Titration 63.000 675 75 Amount Norepinephrine 4 mg In 63.000 Dextrose 5% in Water 250 ml @ Titrate IV .Q0M [facility] Rx#:[id number] Sodium Chloride 0.45% 1, 675 75 000 ml @ 75 mls/hr IV . [id number] [facility] Rx#:[id number] Output: Urine 1450 3290 440 Other: Voiding Method Indwelling Catheter Indwelling Catheter Indwelling Catheter # Bowel Movements 1 1 - Exam GENERAL: The patient is alert and oriented x3, not in any acute distress. Well developed, well nourished. HEENT: Pupils are round and equally reacting to light. EOMI. No scleral icterus. No conjunctival pallor. Normocephalic, atraumatic. No pharyngeal erythema. No thyromegaly. CARDIOVASCULAR: S1 and S2 present. No murmurs, rubs, or gallops. PULMONARY: Chest is clear to auscultation, no wheezing or crackles. ABDOMEN: Soft, nontender, nondistended, normoactive bowel sounds. No palpable organomegaly. MUSCULOSKELETAL: No joint swelling or deformity. EXTREMITIES: No cyanosis, clubbing, or pedal edema. NEUROLOGICAL: Gross neurological examination did not reveal any focal deficits. SKIN: No rashes. - Labs CBC & Chem 7: 06/08/18 04:31 06/08/18 04:31 Labs: Abnormal Lab Results - Last 24 Hours (Table) 06/07/18 06/07/18 06/07/18 Range/Units 01:50 02:03 02:03 Hgb 11.3 L (13.0-17.5) gm/dL Hct 37.0 L (39.0-53.0) % MCHC 30.5 L (31.0-37.0) g/dL RDW 18.2 H (11.5-15.5) % Plt Count 68 L (150-450) k/uL Chloride 111 H (98-107) mmol/L Carbon Dioxide 19 L (22-30) mmol/L BUN 26 H (9-20) mg/dL Glucose 201 H (74-99) mg/dL Plasma Lactic Acid Chente 2.5 H* (0.7-2.0) mmol/L Calcium 7.6 L (8.4-10.2) mg/dL Phosphorus 2.2 L (2.5-4.5) mg/dL Microbiology - Last 24 Hours (Table) 06/06/18 13:15 Blood Culture - Preliminary Blood No Growth after 24 hours 06/05/18 17:18 Blood Culture Gram Stain - Preliminary Blood Blood Culture - Preliminary Gram Neg Bacilli Assessment and Plan Plan: Septic shock secondary to a urinary source. The patient recently had bladder stones removed surgically. He does have a Vasquez catheter in place. Has been seen by urology. History of chronic atrial fibrillation History of Kkqnu-Wmohr-Hfxkj syndrome History of hypertension History of deafness History of DJD Previous history of kidney and bladder stones History of CAD with stent placement Multiple surgical procedures. Plan: Plan dated 06/07/2018 The patient's currently on antibiotics and fluid resuscitation , but off norepinephrine. The patient is doing a bit better than he was. . He's been seen by urology. White count 14.1 hemoglobin 12.5 hematocrit 38.6 and platelet count 92,000. PT 12.5 INR 1.3. Sodium and potassium were normal chloride is 111 CO2 16 and a gap is normal.x hyperchloremic non-anion gap metabolic acidosis. BUN/creatinine were 27 and 1.16 Lactic acid was 3.5 trending down. The rest of the labs are reviewed. Possible source of infection is urine . Large blood and large leukocyte esterase 116 WBCs and a few bacteria. Continue with the same treatment and antibiotic. DVT and GI prophylaxis. Prognosis guarded
[2018-06-08] MEDS: CEFEPIME 2 GM in SODIUM CHLORIDE 0.9% 50 ML IVPB SCH ×3 (08:09→23:17)
[2018-06-08] MEDS: ASPIRIN 81 MG PO SCH (08:18)
[2018-06-08] MEDS: ASCORBIC ACID 500 MG TAB PO SCH (08:18)
[2018-06-08] MEDS: FAMOTIDINE 20 MG TAB PO SCH ×2 (08:18→21:30)
--- NOTE | 2018-06-08 08:31 | P.PN ---
Subjective Progress Note Date: 06/08/18 Principal diagnosis: Urosepsis Progress note dated 06/08/2018 78-year-old male admitted with a diagnosis of septic shock secondary to Serratia marcescens urinary tract infection. Yesterday, the patient was on norepinephrine. That's been weaned off. Currently he is on room air. His IV is a half normal saline IV at 75 mL an hour. Again norepinephrine has been weaned off. The patient's blood cultures came back positive for Serratia and it is sensitive to cefepime which is the antibiotic that he is on. His breathing is improved. Yesterday, we gave him some Lasix for fluid overload. No chest x-ray was done today. In addition, he has a history of non-anion gap hyperchloremic metabolic acidosis, chronic atrial fibrillation, Osler-Weems- Rendu syndrome, history of hypertension deafness, DJD, history of kidney and bladder stones, history of CAD with stent placement and multiple previous surgical procedures. The patient is doing well enough that later today, if it is stable, he could probably move out of the unit. Objective - Vital Signs Vital signs: Vital Signs Temp 97.8 F 06/08/18 08:00 Pulse 81 06/08/18 08:00 Resp 17 06/08/18 08:00 BP 120/64 06/08/18 08:00 Pulse Ox 95 06/08/18 08:00 Intake & Output 06/07/18 06/08/18 06/08/18 18:59 06:59 18:59 Intake Total 1075 1075 75 Output Total 3290 1025 100 Balance -2215 50 -25 Weight 101.3 kg Intake: IV 400 1000 75 Cefepime 2 gm In Sodium 100 Chloride 0.9% 50 ml @ 100 mls/hr IVPB Q8HR [facility] Rx# :[id number] Sodium Chloride 0.45% 1, 750 75 000 ml @ 75 mls/hr IV . [id number] [facility] Rx#:[id number] Sodium Chloride 0.9% 1, 300 000 ml @ 75 mls/hr IV . [id number] [facility] Rx#:[id number] Sodium Phosphate 10 mmol 250 In Sodium Chloride 0.9% 250 ml @ 125 mls/hr IVPB Q2H [facility] Rx#:[id number] Intake, IV Titration 675 75 Amount Sodium Chloride 0.45% 1, 675 75 000 ml @ 75 mls/hr IV . [id number] [facility] Rx#:[id number] Output: Urine 3290 1025 100 Other: Voiding Method Indwelling Catheter Indwelling Catheter # Bowel Movements 1 1 - Exam No acute distress, oriented 3. Not receiving any supplemental oxygen at this time. HEENT examination is grossly unremarkable. Mucous membranes are moist. No oral lesions. Neck supple. Full range of motion. No adenopathy thyromegaly or neck vein distention. Cardiovascular examination reveals a irregular rhythm and rate. The patient is clearly in atrial fibrillation. S1-S2 normal. No heart murmur noted.. Lungs reveal mostly clear breath sounds.A few scattered rhonchi noted. No wheezes or crackles. Breath sounds equal.. Abdomen soft bowel sounds are heard. No masses or tenderness. Extremities are intact. No cyanosis clubbing or edema. Skin is without rash or lesion. Neurologic examination is brief but nonfocal. - Labs CBC & Chem 7: 06/08/18 04:31 06/08/18 04:31 Labs: Abnormal Lab Results - Last 24 Hours (Table) 06/08/18 06/08/18 Range/Units 04:31 04:31 Hgb 11.7 L (13.0-17.5) gm/dL Hct 37.4 L (39.0-53.0) % RDW 17.7 H (11.5-15.5) % Plt Count 90 L (150-450) k/uL Lymphocytes # 0.4 L (1.0-4.8) k/uL BUN 26 H (9-20) mg/dL Glucose 149 H (74-99) mg/dL Calcium 7.9 L (8.4-10.2) mg/dL Phosphorus 1.7 L (2.5-4.5) mg/dL Microbiology - Last 24 Hours (Table) 06/07/18 02:03 Blood Culture - Preliminary Blood No Growth after 24 hours 06/05/18 17:18 Blood Culture Gram Stain - Final Blood Blood Culture - Final Serratia marcescens 06/06/18 13:15 Blood Culture - Preliminary Blood No Growth after 24 hours Assessment and Plan Assessment: Assessment Septic shock secondary to a Serratia marcescens urinary tract infection. The patient recently had bladder stones removed surgically. He does have a Vasquez catheter in place. Has been seen by urology. History of chronic atrial fibrillation History of Labuu-Kmyad-Lrstq syndrome History of hypertension History of deafness History of DJD Previous history of kidney and bladder stones History of CAD with stent placement Multiple surgical procedures. Hypotension, secondary to sepsis, improved with fluid administration and no epinephrine, resolved Plan: Plan dated 06/06/2018 The patient's currently on antibiotics and fluid resuscitation and norepinephrine. The patient is doing a bit better than he was. We'll attempt to the norepinephrine as his blood pressure improves. Additional recommendations and suggestions are forthcoming. He's been seen by urology. White count 14.1 hemoglobin 12.5 hematocrit 38.6 and platelet count 92,000. PT 12.5 INR 1.3. Sodium and potassium were normal chloride is 111 CO2 16 and a gap is normal.x hyperchloremic non-anion gap metabolic acidosis. BUN/ creatinine were 27 and 1.16 Lactic acid was 3.5. The rest of the labs are reviewed. Urine doesn't suggest a infection. Large blood and large leukocyte esterase 116 WBCs and a few bacteria. Critical care time 34 minutes Plan dated 06/08/2018 The patient does look a lot better today. The patient is currently on half- normal saline IV at 75 mL an hour. Currently not receiving any supplemental oxygen. The norepinephrine has been weaned off. The patient still is in atrial fibrillation but his rate is controlled. His lungs today are clear. His blood cultures came back positive for Serratia marcescens. He's been on cefepime which is effective against this bacteria. I told the nurses that later today he might be able to move out of the ICU. White count is 6.6, hemoglobin 11.7 hematocrit 37.4 and platelet count 90,000. Sodium potassium chloride CO2 anion gap BUN and creatinine are essentially normal. No new chest x-ray Report on. Medications are reviewed. Everything seems very appropriate at this time. Critical care time 32 minutes Time with Patient: Greater than 30
--- NOTE | 2018-06-08 10:18 | P.PN ---
Progress Note - Text Progress Note Date: 06/07/18 POD #8, s/p Open Cystolithotomy. Patient admitted with UTI/sepsis, likely precipitated by occluded Vasquez catheter. Currently afebrile. Incision clean and dry. Vasquez draining clear yellow urine. Will remove every other skin staple. Cystogram 06/10; if no extravasation, will D/C Vasquez.
--- NOTE | 2018-06-08 10:23 | PN ---
PROGRESS NOTE Mr. Bañuelos is a 78-year-old male with a history of atrial fibrillation, not anticoagulated because of prior bleeding, who presented with sepsis. He is feeling better today. His breathing is better. He is denying any chest pain. He is on no pressors. His appetite is improving. He denies any nausea or vomiting. He denies any cough. He continues to be at this time on aspirin 81 mg daily, Lipitor 10 mg daily in addition to antibiotics. PHYSICAL EXAMINATION: Blood pressure 120/60 with a heart rate in the 80s. Lungs no wheezes. Heart irregularly irregular, S1, S2. No S3. No rub. ABDOMEN: Soft, mild tenderness. Extremities no significant edema. LAB DATA: Revealed BUN and creatinine 26 and 0.7. Hemoglobin of 11.7, white blood cell of 6.6. IMPRESSION: 1. Urinary tract infection with sepsis improving. 2. Persistent chronic atrial fibrillation. 3. History of Osler Weems Rendu syndrome. 4. History of hypertension. RECOMMENDATIONS: From the cardiac standpoint, he is stable. He should be able to transferred to the surgical medical floor and continue on the present medical regimen. MMODL / IJN: [id number] /
[2018-06-08] MEDS: SODIUM CHLORIDE 0.45% 1,000 ML IV SCH ×2 (12:14→21:32)
[2018-06-08] MEDS: MULTIVITAMINS, THERA 1 EACH TAB PO SCH (12:15)
[2018-06-08] MEDS: ATORVASTATIN 10 MG TAB PO SCH (21:30)
--- NOTE | 2018-06-08 22:15 | P.PN ---
Subjective 78-year-old male with a history of recent bladder stone removal, admitted to the hospital with a diagnosis of possible sepsis. The patient apparently had abrupt onset of shakes and fever. He was found have a temperature of 102. He received quite a bit of fluid resuscitation in the emergency department but despite that became hypotensive and was started on norepinephrine. The patient' s currently on about 16 mcg/m of norepinephrine. Mucous membranes patient received more than 4 L of fluid. The patient's a little bit tachypnea. Mildly tachycardic. Normotensive currently. The patient has been seen by urology. Has a Izaguirre catheter in place. He does have a history of kidney stones and bladder stones. He's had a previous history of heart catheterization with stent placement hernia repair joint replacement and other orthopedic procedures. Patient had urine cultures are positive for gram-negative bacilli. Patient is on ceftriaxone which was switched to cefepime because of his recent hospitalization high risk for pseudomonal infections, the spectrum can be narrowed down once we have the organism on the cultures. 06/07/2018 Patient was admitted to the ICU with vascular shock. He needed pressors. Currently he is off Levophed. Continue on intravenous fluids patient still dyspneic. Chest x-ray shows right lower lobe infiltrate. Patient is on antibiotics patient reviewing the lab shows no leukocytosis. His abdomen mildly anemic at 11.3. But he has low platelet count of 68 which needs to be monitored. Sodium 139. Potassium 4.3. And creatinine is 2.2. Patient lactic acid was trending down from 3.9 to 2.5. Follow-up culture results 06/08/2018 pt would be transferred from ICU to general medical floor, Continue on intravenous fluids patient still dyspneic. Chest x-ray shows right lower lobe infiltrate. Patient is on antibiotics patient reviewing the lab shows no leukocytosis. fever on admission has resolved . Hb 11.7 and platelet is up from 68 to 90 , no over signs of bleeding. Hemoglobin is mildly anemic at 11.3. But he has low platelet count of 68 which needs to be monitored. Sodium 137. Potassium 4.0. And creatinine is coming down 1.7. he is still on iv fluid at 75 ml/hr. Patient lactic acid was trending down from 3.9 to 2.5. we will check Lactic a tomorrow. Follow-up culture results. Pt is with positive blood culture with serratia , we will call Infectious disease consult Review of systems: GENERAL: The patient is alert and oriented x3, not in any acute distress. Well developed, well nourished. HEENT: Pupils are round and equally reacting to light. EOMI. No scleral icterus. No conjunctival pallor. Normocephalic, atraumatic. No pharyngeal erythema. No thyromegaly. CARDIOVASCULAR: S1 and S2 present. No murmurs, rubs, or gallops. PULMONARY: Chest is clear to auscultation, no wheezing or crackles. ABDOMEN: Soft, nontender, nondistended, normoactive bowel sounds. No palpable organomegaly. Small abdominal wall lump close to the umbilicus with a smooth borders and mobile, nontender MUSCULOSKELETAL: No joint swelling or deformity. EXTREMITIES: No cyanosis, clubbing, or pedal edema. NEUROLOGICAL: Gross neurological examination did not reveal any focal deficits. Objective - Vital Signs Vital signs: Vital Signs Temp 98.2 F 06/08/18 15:00 Pulse 85 06/08/18 16:00 Resp 20 06/08/18 16:00 BP 112/64 06/08/18 15:00 Pulse Ox 96 06/08/18 15:00 Intake & Output 06/08/18 06/08/18 06/09/18 06:59 18:59 06:59 Intake Total 1075 450 Output Total 1025 930 Balance 50 -480 Weight 101.3 kg Intake: IV 1000 450 Cefepime 2 gm In Sodium 50 Chloride 0.9% 50 ml @ 100 mls/hr IVPB Q8HR [facility] Rx# :[id number] Sodium Chloride 0.45% 1, 750 150 000 ml @ 75 mls/hr IV . [id number] [facility] Rx#:[id number] Sodium Phosphate 10 mmol 250 250 In Sodium Chloride 0.9% 250 ml @ 125 mls/hr IVPB Q2H [facility] Rx#:[id number] Intake, IV Titration 75 Amount Sodium Chloride 0.45% 1, 75 000 ml @ 75 mls/hr IV . [id number] [facility] Rx#:[id number] Output: Urine 1025 930 Other: Voiding Method Indwelling Catheter Indwelling Catheter # Bowel Movements 1 1 - Exam GENERAL: The patient is alert and oriented x3, not in any acute distress. Well developed, well nourished. HEENT: Pupils are round and equally reacting to light. EOMI. No scleral icterus. No conjunctival pallor. Normocephalic, atraumatic. No pharyngeal erythema. No thyromegaly. CARDIOVASCULAR: S1 and S2 present. No murmurs, rubs, or gallops. PULMONARY: Chest is clear to auscultation, no wheezing or crackles. ABDOMEN: Soft, nontender, nondistended, normoactive bowel sounds. No palpable organomegaly. MUSCULOSKELETAL: No joint swelling or deformity. EXTREMITIES: No cyanosis, clubbing, or pedal edema. NEUROLOGICAL: Gross neurological examination did not reveal any focal deficits. SKIN: No rashes. - Labs CBC & Chem 7: 06/08/18 04:31 06/08/18 04:31 Labs: Abnormal Lab Results - Last 24 Hours (Table) 06/08/18 06/08/18 Range/Units 04:31 04:31 Hgb 11.7 L (13.0-17.5) gm/dL Hct 37.4 L (39.0-53.0) % RDW 17.7 H (11.5-15.5) % Plt Count 90 L (150-450) k/uL Lymphocytes # 0.4 L (1.0-4.8) k/uL BUN 26 H (9-20) mg/dL Glucose 149 H (74-99) mg/dL Calcium 7.9 L (8.4-10.2) mg/dL Phosphorus 1.7 L (2.5-4.5) mg/dL Microbiology - Last 24 Hours (Table) 06/06/18 13:15 Blood Culture - Preliminary Blood No Growth after 48 hours 06/05/18 17:18 Blood Culture Gram Stain - Final Blood Blood Culture - Final Serratia marcescens 06/07/18 02:03 Blood Culture - Preliminary Blood No Growth after 24 hours Assessment and Plan Plan: s/p Septic shock secondary to a urinary source. The patient recently had bladder stones removed surgically. He does have a Izaguirre catheter in place. Has been seen by urology. positive blood culture with serratia , infectious disease are consulted History of chronic atrial fibrillation History of Oozaq-Xagpm-Xptgd syndrome History of hypertension History of deafness History of DJD Previous history of kidney and bladder stones History of CAD with stent placement Multiple surgical procedures. Plan: Plan dated 06/08/2018 continue with the same treatment , continue with symptomatic treatment , pt is on antibiotic of cefepime and iv fluid sodium saline 0.45% at 75 ml/ hours . his creatinine is still trending down 2.2 to 1.7 and continue monitoring , his high lactic acid needs to be checked again . pulmonary and urology teams are following the case , we will call infectious disease consult tomorrow for positive blood culture with serratia spp. pt still has izaguirre catheter and management as per urology team .his heart rate is controlled in view of his atrial fibrillation. further recommendation is based upon the progress of the pt DVT and GI prophylaxis. Prognosis guarded
[2018-06-09 08:17] LABS: Anisocytosis Slight; Basophils % (A) 0 %; Eosinophils # (A) 0.1 k/uL (0-0.7); Eosinophils % (A) 1 %; HCT 40.4 % (39.0-53.0); HGB 12.7 gm/dL (13.0-17.5); Lymphocytes # (A) 0.4 k/uL (1.0-4.8); Lymphocytes % (A) 6 %; MCH 25.9 pg (25.0-35.0); MCHC 31.4 g/dL (31.0-37.0); MCV 82.5 fL (80.0-100.0); Mean Platelet Volume 8.6; Microcytosis Slight; Monocytes # (A) 0.3 k/uL (0-1.0); Monocytes % (A) 4 %; Neutrophils # (A) 5.3 k/uL (1.3-7.7); Neutrophils % (A) 87 %; Platelet Count 106 k/uL (150-450); RDW 17.4 % (11.5-15.5); WBC 6.1 k/uL (3.8-10.6)
[2018-06-09 08:43] LABS: Anion Gap 8 mmol/L; Blood Urea Nitrogen 23 mg/dL (9-20); Calcium 8.6 mg/dL (8.4-10.2); Carbon Dioxide 27 mmol/L (22-30); Chloride 103 mmol/L (98-107); Glucose 156 mg/dL (74-99); Magnesium 1.9 mg/dL (1.6-2.3); Phosphorus 2.2 mg/dL (2.5-4.5); Potassium 4.7 mmol/L (3.5-5.1); Sodium 138 mmol/L (137-145)
[2018-06-09] MEDS: ASPIRIN 81 MG PO SCH (09:30)
[2018-06-09] MEDS: ASCORBIC ACID 500 MG TAB PO SCH (09:30)
[2018-06-09] MEDS: FAMOTIDINE 20 MG TAB PO SCH ×2 (09:30→21:07)
[2018-06-09] MEDS: cefTRIAXone IN SWFI 2,000 MG/20 ML SYRINGE IVP SCH (09:31)
[2018-06-09] MEDS ORDERED: HEPARIN SODIUM,PORCINE 5,000 UNIT/ML 1 ML VIAL SQ SCH (11:00)
--- NOTE | 2018-06-09 13:47 | P.CONS ---
History of Present Illness - Reason for Consult Consult date: 06/09/18 - Chief Complaint Weakness - History of Present Illness Malia 78-year-old male presented hospital feeling very poorly with sudden onset high-grade fever with chills as well as profound weakness. He consequently presented to the emergency center where he was found to have evidence of atrial fibrillation with rapid ventricular response as well as a temperature 102. He was hypotensive and required admission to the intensive care unit and vasopressor therapy. The patient has now had an improvement of his status and his been moved to the medical floor, however there is evidence of the positive blood cultures and with at the infectious diseases consultation is been requested. The patient's recent and pertinent history is that he has difficulties with stone formation in his urinary system. He does have a history of prior nephrolithiasis as well as bladder stones. Recently he developed an extensive bladder stone and on 05/30/2018 underwent the surgical extraction of the stone. It is related was treated with cephalexin as well as Levaquin around the time of this procedure. As noted the patient is now had the onset of a high-grade fevers chills and atrial fibrillation. He fortunately is more stable at this point in time. He is doing well with antibiotic therapy. He still feels weak but does feel better. Review of Systems Malia 78-year-old male relates is much more comfortable than prior less short of breath HEENT:Denies headache or acute visual change. Denies sinus or mouth discomforts. Denies neck stiffness or pain. Denies significant oral cavity pain. Denies difficulty on swallowing. Lungs: Denies significant shortness of breath, cough, sputum production, or hemoptysis. Cardiovascular: Is not having chest pain but did have shortness of breath at admission denies chest wall pain. Denied orthopnea or syncope does have dyspnea on exertion but is not acutely changed Gastrointestinal:Denies nausea, vomiting, diarrhea, constipation, hematemesis, melena, hematochezia. No no significant change of bowel habit noticed. Musculoskeletal: denies significant myalgias or arthralgias. No new joint swelling. Denies new back pain. Skin: Denies new rash or lesions. No new ulcers or wounds are related.. Neuro: Denies headache or visual change. Denies any new onset weakness or difficulty with ambulation. Denies falls or seizures. Psychiatric:Denies anxiety or depression. Endocrine: Significant fatigue but weight has been stable Urinary:. Patient has Vasquez catheter in place denies significant discomfort urine is not grossly bloody at this time. Past Medical History Past Medical History: Atrial Fibrillation, Hearing Disorder / Deafness, Hyperlipidemia, Hypertension, Osteoarthritis (OA) Additional Past Medical History / Comment(s): Hx: HHT, kidney stones, bladder stones History of Any Multi-Drug Resistant Organisms: None Reported Past Surgical History: Heart Catheterization With Stent, Hernia Repair, Joint Replacement, Orthopedic Surgery Additional Past Surgical History / Comment(s): lt knee replacement, jessy heel spurs, umbilical hernia Past Anesthesia/Blood Transfusion Reactions: Previous Problems w/ Anesthesia Additional Past Anesthesia/Blood Transfusion Reaction / Comm: "slow waking up" "have to keep my head elevated so I don't get nosebleeds" Date of Last Stent Placement:: 2000 Past Psychological History: No Psychological Hx Reported Additional Psychological History / Comment(s): Patient is and lives in the family home with his . 2 children, adult daughter was killed in accident within the last few years. No pets in the home. Was in the during the [place] era but was only stateside. No international travel. no animals in the home. Retired from [employer] Smoking Status: Never smoker Past Alcohol Use History: None Reported Past Drug Use History: None Reported - Past Family History Brother(s) Family Medical History: Blood Disorder Additional Family Medical History / Comment(s): 2 brothers with HHT Sister(s) Family Medical History: Blood Disorder Additional Family Medical History / Comment(s): 2 sisters HHT Father Additional Family Medical History / Comment(s): hht Mother Family Medical History: Diabetes Mellitus Medications and Allergies Home Medications and Allergies Comment(s): Current Medications Acetaminophen (Tylenol Tab) 650 mg PO Q4HR PRN PRN Reason: Fever and/or Mild Pain Last Admin: 06/09/18 00:58 Dose: 650 mg Ascorbic Acid (Vitamin C) 250 mg PO DAILY [facility] Last Admin: 06/09/18 09:30 Dose: 250 mg Aspirin (Aspirin) 81 mg PO DAILY [facility] Last Admin: 06/09/18 09:30 Dose: 81 mg Atorvastatin Calcium (Lipitor) 10 mg PO HS [facility] Last Admin: 06/08/18 21:30 Dose: 10 mg Ceftriaxone Sodium (Rocephin) 2,000 mg IVP Q24HR [facility] Last Admin: 06/09/18 09:31 Dose: 2,000 mg Famotidine (Pepcid) 20 mg PO Q12HR [facility] Last Admin: 06/09/18 09:30 Dose: 20 mg Sodium Chloride (Saline 0.45%) 1,000 mls @ 75 mls/hr IV .[id number] [facility] Last Admin: 06/08/18 21:32 Dose: 75 mls/hr Miscellaneous Information (Magnesium Per Protocol) 1 each MISCELLANE DAILY PRN ; Protocol PRN Reason: Per Protocol Miscellaneous Information (Phosphorus Per Protocol) 1 each MISCELLANE DAILY PRN ; Protocol PRN Reason: Per Protocol Multivitamins (Theragran) 1 each PO DAILY@1200 [facility] Last Admin: 06/08/18 12:15 Dose: 1 each Naloxone HCl (Narcan) 0.2 mg IV Q2M PRN PRN Reason: Opioid Reversal Home Medications Medication Instructions Recorded Confirmed Type Aspirin 81 mg PO DAILY chew 06/14/15 06/05/18 Rx Multivitamins, Thera [Multivitamin 1 each PO DAILY@1200 tab 06/14/15 06/05/18 Rx (formulary)] Ascorbic Acid [Vitamin C] 250 mg PO DAILY 05/24/18 06/05/18 History Lisinopril [Zestril] 20 mg PO BID 05/24/18 06/05/18 History Simvastatin [Zocor] 20 mg PO HS 05/24/18 06/05/18 History HYDROcodone/APAP 5-325MG [[place] 1 tab PO Q6HR PRN 3 Days #12 tab 06/02/18 Rx 5-325] Allergies Allergy/AdvReac Type Severity Reaction Status Date / Time No Known Allergies Allergy Verified 06/05/18 17:06 Physical Exam Vitals: Vital Signs Temp Pulse Pulse Resp BP Pulse Ox 06/09/18 08:40 79 76 16 06/09/18 05:00 97.4 F L 76 16 122/71 97 06/08/18 22:11 98.2 F 79 16 125/65 98 06/08/18 16:00 85 20 06/08/18 15:00 98.2 F 85 20 112/64 96 Intake and Output 06/08/18 06/09/18 06/09/18 22:59 06:59 14:59 Intake Total 590 1190 Output Total 200 2450 1300 Balance 390 -1260 -1300 Intake: IV 600 Cefepime 2 gm In Sodium 50 Chloride 0.9% 50 ml @ 100 mls/hr IVPB Q8HR [facility] Rx# :[id number] Sodium Chloride 0.45% 1, 550 000 ml @ 75 mls/hr IV . [id number] [facility] Rx#:[id number] Oral 590 590 Output: Urine 200 2450 1300 Other: Voiding Method Indwelling Catheter Indwelling Catheter 78-year-old male who is comfortable at this time HEENT: Anicteric conjunctiva are pink and moist nasal mucosa grossly intact without significant lesions, there is no thrush. Evidence of extensive dental work Neck: The neck is supple without significant lymphadenopathy or thyromegaly. Lungs: Good bilateral air entry without significant crackles or wheezing. There is no significant bronchial sounds. There is no egophony or dullness. Heart: Irregularly irregular with an audible S1 and S2 soft S4 no distinct murmur click or rub PMI was nondisplaced Abdomen: Positive bowel sounds soft has only minimal tenderness over the surgical site from the bladder stone removal on 05/30/2018. The site is without erythema crepitance or fluctuance, there is no drainage from that site. without palpable masses or organomegaly. There was no guarding or rebound. There is no flank tenderness Extremities: The upper extremities have evidence of some ecchymosis and an IV site that is intact, is bilateral lower extremity edema 2+ pitting no open ulcers Neuro: Awake alert oriented to person place and time. There are no acute new gross focal sensory motor deficits. Results CBC & Chem 7: 06/09/18 08:04 06/09/18 08:04 Labs: Abnormal Lab Results - Last 24 Hours (Table) 06/09/18 06/09/18 Range/Units 08:04 08:04 Hgb 12.7 L (13.0-17.5) gm/dL RDW 17.4 H (11.5-15.5) % Plt Count 106 L (150-450) k/uL Lymphocytes # 0.4 L (1.0-4.8) k/uL BUN 23 H (9-20) mg/dL Glucose 156 H (74-99) mg/dL Phosphorus 2.2 L (2.5-4.5) mg/dL Microbiology - Last 24 Hours (Table) 06/07/18 02:03 Blood Culture - Preliminary Blood No Growth after 48 hours 06/06/18 13:15 Blood Culture - Preliminary Blood No Growth after 48 hours 06/05/18 17:18 Blood Culture Gram Stain - Final Blood Blood Culture - Final Serratia marcescens Laboratory Results WBC 6.1 k/uL (3.8-10.6) 06/09/18 08:04 RBC 4.90 m/uL (4.30-5.90) 06/09/18 08:04 Hgb 12.7 gm/dL (13.0-17.5) L 06/09/18 08:04 Hct 40.4 % (39.0-53.0) 06/09/18 08:04 MCV 82.5 fL (80.0-100.0) 06/09/18 08:04 MCH 25.9 pg (25.0-35.0) 06/09/18 08:04 MCHC 31.4 g/dL (31.0-37.0) 06/09/18 08:04 RDW 17.4 % (11.5-15.5) H 06/09/18 08:04 Plt Count 106 k/uL (150-450) L 06/09/18 08:04 Neutrophils % 87 % 06/09/18 08:04 Neutrophils % (Manual) 54 % 06/06/18 04:46 Band Neutrophils % 30 % 06/06/18 04:46 Lymphocytes % 6 % 06/09/18 08:04 Lymphocytes % (Manual) 2 % 06/06/18 04:46 Monocytes % 4 % 06/09/18 08:04 Monocytes % (Manual) 3 % 06/06/18 04:46 Eosinophils % 1 % 06/09/18 08:04 Basophils % 0 % 06/09/18 08:04 Metamyelocytes % 11 % 06/06/18 04:46 Neutrophils # 5.3 k/uL (1.3-7.7) 06/09/18 08:04 Neutrophils # (Manual) 11.80 k/uL (1.3-7.7) H 06/06/18 04:46 Lymphocytes # 0.4 k/uL (1.0-4.8) L 06/09/18 08:04 Lymphocytes # (Manual) 0.28 k/uL (1.0-4.8) L 06/06/18 04:46 Monocytes # 0.3 k/uL (0-1.0) 06/09/18 08:04 Monocytes # (Manual) 0.42 k/uL (0-1.0) 06/06/18 04:46 Eosinophils # 0.1 k/uL (0-0.7) 06/09/18 08:04 Basophils # 0.0 k/uL (0-0.2) 06/09/18 08:04 Metamyelocytes # (Man) 1.55 k/uL (0) H 06/06/18 04:46 Nucleated RBCs 0 /100 WBC (0-0) 06/06/18 04:46 Manual Slide Review Performed 06/06/18 04:46 Large Platelets Present 06/05/18 17:17 Hypochromasia Slight 06/08/18 04:31 Anisocytosis Slight 06/09/18 08:04 Microcytosis Slight 06/09/18 08:04 PT 12.5 sec (9.0-12.0) H 06/06/18 04:46 INR 1.3 (<1.2) H 06/06/18 04:46 APTT 25.9 sec (22.0-30.0) 06/06/18 04:46 Sodium 138 mmol/L (137-145) 06/09/18 08:04 Potassium 4.7 mmol/L (3.5-5.1) 06/09/18 08:04 Chloride 103 mmol/L (98-107) 06/09/18 08:04 Carbon Dioxide 27 mmol/L (22-30) 06/09/18 08:04 Anion Gap 8 mmol/L 06/09/18 08:04 BUN 23 mg/dL (9-20) H 06/09/18 08:04 Creatinine 0.78 mg/dL (0.66-1.25) 06/09/18 08:04 Est GFR (CKD-EPI)AfAm >90 (>60 ml/min/1.73 sqM) 06/09/18 08:04 Est GFR (CKD-EPI)NonAf 86 (>60 ml/min/1.73 sqM) 06/09/18 08:04 Glucose 156 mg/dL (74-99) H 06/09/18 08:04 POC Glucose (mg/dL) 112 mg/dL (75-99) H 06/05/18 23:01 POC Glu Reshipping Clerk ID Elaine Li 06/05/18 23:01 Lactic Ac Sepsis Rflx Y 06/06/18 22:33 Plasma Lactic Acid Chente 1.2 mmol/L (0.7-2.0) 06/09/18 08:04 Calcium 8.6 mg/dL (8.4-10.2) 06/09/18 08:04 Phosphorus 2.2 mg/dL (2.5-4.5) L 06/09/18 08:04 Magnesium 1.9 mg/dL (1.6-2.3) 06/09/18 08:04 Total Bilirubin 5.4 mg/dL (0.2-1.3) H 06/06/18 04:46 AST 41 U/L (17-59) 06/06/18 04:46 ALT 32 U/L (21-72) 06/06/18 04:46 Alkaline Phosphatase 69 U/L (38-126) 06/06/18 04:46 Total Protein 5.3 g/dL (6.3-8.2) L 06/06/18 04:46 Albumin 3.0 g/dL (3.5-5.0) L 06/06/18 04:46 Urine Color Yellow 06/05/18 17:15 Urine Appearance Cloudy (Clear) 06/05/18 17:15 Urine pH 6.0 (5.0-8.0) 06/05/18 17:15 Ur Specific [place] 1.013 (1.001-1.035) 06/05/18 17:15 Urine Protein 1+ (Negative) H 06/05/18 17:15 Urine Glucose (UA) Negative (Negative) 06/05/18 17:15 Urine Ketones Negative (Negative) 06/05/18 17:15 Urine Blood Large (Negative) H 06/05/18 17:15 Urine Nitrite Positive (Negative) 06/05/18 17:15 Urine Bilirubin Negative (Negative) 06/05/18 17:15 Urine Urobilinogen <2.0 mg/dL (<2.0) 06/05/18 17:15 Ur Leukocyte Esterase Large (Negative) H 06/05/18 17:15 Urine RBC 59 /hpf (0-5) H 06/05/18 17:15 Urine WBC 116 /hpf (0-5) H 06/05/18 17:15 Ur Squamous Epith Cells 3 /hpf (0-4) 06/05/18 17:15 Urine Bacteria Few /hpf (None) H 06/05/18 17:15 Urine Mucus Occasional /hpf (None) H 06/05/18 17:15 Microbiology 06/07/18 02:03 Blood Blood Culture - Preliminary No Growth after 48 hours 06/06/18 13:15 Blood Blood Culture - Preliminary No Growth after 48 hours 06/05/18 17:18 Blood Blood Culture Gram Stain - Final 06/05/18 17:18 Blood Blood Culture - Final Serratia marcescens 06/05/18 17:17 Blood Blood Culture - Final Assessment and Plan (1) Septic shock Narrative/Plan: 78-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 The patient was treated with antibiotic therapy after the procedure with cephalexin and Levaquin. The patient however presents to Hospital of high-grade fever of greater than 102 chills rigors and hypotension and required admission to the intensive care unit in vasopressor therapy. He fortunately responded quickly to therapy and has already been transitioned out of the intensive care unit. The patient does continue to feel poorly but better than admission. He also had difficulties with atrial fibrillation which is also improved. At this time the patient is having improvement of his status his temperatures improve 102 down to 99. Follow blood culture appears to be negative so far, no urine culture was available from admission. For therapy for the Serratia that has been isolated antibiotic therapy was transitioned to high dose ceftriaxone. The patient is noted to be feeling better but there is evidence of an elevated bilirubin of an undetermined etiology. Possibly due to his underlying hereditary telangiectasia. At this time the patient has failed outpatient antibiotic therapy and developed septic shock and we have discussed that it will be prudent for him to utilize a course of intravenous antibiotic therapy now that he is starting to show improvement. This will be arranged in the outpatient setting. Elevated bilirubin is occurring without elevated alkaline phosphatase are elevated AST her ALT, is having likely to be a viral hepatitis. Patient does have thrombocytopenia likely multifactorial but likely worsened with the current sepsis is improving and will be monitored. The lactic acidosis admission was less than the basis of sepsis as well as perfusion that was altered due to his atrial fibrillation. It has now normalized. Current Visit: Yes Status: Acute Code(s): A41.9 - SEPSIS, UNSPECIFIED ORGANISM; R65.21 - SEVERE SEPSIS WITH SEPTIC SHOCK SNOMED Code(s): 75018518 (2) Serratia sepsis Current Visit: Yes Status: Acute Code(s): A41.53 - SEPSIS DUE TO SERRATIA SNOMED Code(s): 885779846 (3) Rapid atrial fibrillation Current Visit: Yes Status: Acute Code(s): I48.91 - UNSPECIFIED ATRIAL FIBRILLATION SNOMED Code(s): 034314514 (4) Thrombocytopenia Current Visit: Yes Status: Acute Code(s): D69.6 - THROMBOCYTOPENIA, UNSPECIFIED SNOMED Code(s): 430962727 (5) Wbpaq-Gdxdr-Sxezs disease Current Visit: Yes Status: Acute Code(s): I78.0 - HEREDITARY HEMORRHAGIC TELANGIECTASIA SNOMED Code(s): 85960210 (6) Hyperbilirubinemia Current Visit: Yes Status: Acute Code(s): E80.6 - OTHER DISORDERS OF BILIRUBIN METABOLISM SNOMED Code(s): 83951158
[2018-06-09] MEDS: MULTIVITAMINS, THERA 1 EACH TAB PO SCH (14:22)
[2018-06-09] MEDS: SODIUM CHLORIDE 0.45% 1,000 ML IV SCH (14:22)
[2018-06-09] MEDS: ATORVASTATIN 10 MG TAB PO SCH (21:07)
[2018-06-09 22:21] VITALS: RESP 16
--- NOTE | 2018-06-10 02:38 | P.PN ---
Subjective 78-year-old male with a history of recent bladder stone removal, admitted to the hospital with a diagnosis of possible sepsis. The patient apparently had abrupt onset of shakes and fever. He was found have a temperature of 102. He received quite a bit of fluid resuscitation in the emergency department but despite that became hypotensive and was started on norepinephrine. The patient' s currently on about 16 mcg/m of norepinephrine. Mucous membranes patient received more than 4 L of fluid. The patient's a little bit tachypnea. Mildly tachycardic. Normotensive currently. The patient has been seen by urology. Has a Izaguirre catheter in place. He does have a history of kidney stones and bladder stones. He's had a previous history of heart catheterization with stent placement hernia repair joint replacement and other orthopedic procedures. Patient had urine cultures are positive for gram-negative bacilli. Patient is on ceftriaxone which was switched to cefepime because of his recent hospitalization high risk for pseudomonal infections, the spectrum can be narrowed down once we have the organism on the cultures. 06/07/2018 Patient was admitted to the ICU with vascular shock. He needed pressors. Currently he is off Levophed. Continue on intravenous fluids patient still dyspneic. Chest x-ray shows right lower lobe infiltrate. Patient is on antibiotics patient reviewing the lab shows no leukocytosis. His abdomen mildly anemic at 11.3. But he has low platelet count of 68 which needs to be monitored. Sodium 139. Potassium 4.3. And creatinine is 2.2. Patient lactic acid was trending down from 3.9 to 2.5. Follow-up culture results 06/08/2018 pt would be transferred from ICU to general medical floor, Continue on intravenous fluids patient still dyspneic. Chest x-ray shows right lower lobe infiltrate. Patient is on antibiotics patient reviewing the lab shows no leukocytosis. fever on admission has resolved . Hb 11.7 and platelet is up from 68 to 90 , no over signs of bleeding. Hemoglobin is mildly anemic at 11.3. But he has low platelet count of 68 which needs to be monitored. Sodium 137. Potassium 4.0. And creatinine is coming down 1.7. he is still on iv fluid at 75 ml/hr. Patient lactic acid was trending down from 3.9 to 2.5. we will check Lactic a tomorrow. Follow-up culture results. Pt is with positive blood culture with serratia , we will call Infectious disease consult 06/09/2018 patient dyspneia improving sligtly. Chest x-ray shows right lower lobe infiltrate. Patient is on antibiotics patient reviewing the lab shows no leukocytosis. fever on admission has resolved . Hb 12.7 and platelet is up from 68 to 90 to 106 , no over signs of bleeding. pt refused heparin saying he has tendency of bleeding and he does not want it . Sodium 137. Potassium 4.0. And creatinine is WNL. he is still on iv fluid at 75 ml/hr. Patient lactic acid is normal. Follow-up culture results. Pt is with positive blood culture with serratia Infectious disease consult appreciated Objective - Vital Signs Vital signs: Vital Signs Temp 97.4 F L 06/09/18 05:00 Pulse 79 06/09/18 08:40 Resp 16 06/09/18 08:40 BP 122/71 06/09/18 05:00 Pulse Ox 97 06/09/18 05:00 Intake & Output 06/08/18 06/09/18 06/09/18 18:59 06:59 18:59 Intake Total 450 1780 Output Total 930 2450 1300 Balance -480 -670 -1300 Intake: IV 450 600 Cefepime 2 gm In Sodium 50 50 Chloride 0.9% 50 ml @ 100 mls/hr IVPB Q8HR [facility] Rx# :[id number] Sodium Chloride 0.45% 1, 150 550 000 ml @ 75 mls/hr IV . [id number] [facility] Rx#:[id number] Sodium Phosphate 10 mmol 250 In Sodium Chloride 0.9% 250 ml @ 125 mls/hr IVPB Q2H [facility] Rx#:[id number] Oral 1180 Output: Urine 930 2450 1300 Other: Voiding Method Indwelling Catheter Indwelling Catheter Indwelling Catheter # Bowel Movements 1 - Exam GENERAL: The patient is alert and oriented x3, not in any acute distress. Well developed, well nourished. HEENT: Pupils are round and equally reacting to light. EOMI. No scleral icterus. No conjunctival pallor. Normocephalic, atraumatic. No pharyngeal erythema. No thyromegaly. CARDIOVASCULAR: S1 and S2 present. No murmurs, rubs, or gallops. PULMONARY: Chest is clear to auscultation, no wheezing or crackles. ABDOMEN: Soft, nontender, nondistended, normoactive bowel sounds. No palpable organomegaly. MUSCULOSKELETAL: No joint swelling or deformity. EXTREMITIES: No cyanosis, clubbing, or pedal edema. NEUROLOGICAL: Gross neurological examination did not reveal any focal deficits. SKIN: No rashes. - Labs CBC & Chem 7: 06/09/18 08:04 06/09/18 08:04 Labs: Abnormal Lab Results - Last 24 Hours (Table) 06/09/18 06/09/18 Range/Units 08:04 08:04 Hgb 12.7 L (13.0-17.5) gm/dL RDW 17.4 H (11.5-15.5) % Plt Count 106 L (150-450) k/uL Lymphocytes # 0.4 L (1.0-4.8) k/uL BUN 23 H (9-20) mg/dL Glucose 156 H (74-99) mg/dL Phosphorus 2.2 L (2.5-4.5) mg/dL Microbiology - Last 24 Hours (Table) 06/07/18 02:03 Blood Culture - Preliminary Blood No Growth after 48 hours 06/06/18 13:15 Blood Culture - Preliminary Blood No Growth after 48 hours 06/05/18 17:18 Blood Culture Gram Stain - Final Blood Blood Culture - Final Serratia marcescens Assessment and Plan Plan: s/p Septic shock secondary to a urinary source. The patient recently had bladder stones removed surgically. He does have a Izaguirre catheter in place. Has been seen by urology. positive blood culture with serratia , infectious disease are consulted History of chronic atrial fibrillation History of Uzqco-Tngom-Ubtmn syndrome History of hypertension History of deafness History of DJD Previous history of kidney and bladder stones History of CAD with stent placement Multiple surgical procedures. Plan: Plan dated 06/08/2018 continue with the same treatment , continue with symptomatic treatment , pt is on antibiotic of cefepime and iv fluid sodium saline 0.45% at 75 ml/ hours . his creatinine is still WNL , his high lactic acid normalized. pulmonary and urology teams are following the case , pt still has izaguirre catheter and management as per urology team .his heart rate is controlled in view of his atrial fibrillation. further recommendation is based upon the progress of the pt DVT and GI prophylaxis. Prognosis guarded pt refused heparin . Risks / benefit and / alternative are explained
[2018-06-10] MEDS: SODIUM CHLORIDE 0.45% 1,000 ML IV SCH ×2 (04:55→20:42)
[2018-06-10 07:31] LABS: Anisocytosis Slight; Basophils % (A) 0 %; Eosinophils % (A) 1 %; HCT 37.8 % (39.0-53.0); HGB 12.2 gm/dL (13.0-17.5); Hypochromasia Slight; Lymphocytes # (A) 0.5 k/uL (1.0-4.8); Lymphocytes % (A) 8 %; MCH 26.9 pg (25.0-35.0); MCHC 32.3 g/dL (31.0-37.0); MCV 83.1 fL (80.0-100.0); Mean Platelet Volume 8.1; Monocytes # (A) 0.4 k/uL (0-1.0); Monocytes % (A) 7 %; Neutrophils # (A) 4.5 k/uL (1.3-7.7); Neutrophils % (A) 82 %; Platelet Count 118 k/uL (150-450); RBC 4.55 m/uL (4.30-5.90); RDW 17.3 % (11.5-15.5); WBC 5.5 k/uL (3.8-10.6)
[2018-06-10 07:42] LABS: Anion Gap 9 mmol/L; Blood Urea Nitrogen 22 mg/dL (9-20); Calcium 8.5 mg/dL (8.4-10.2); Carbon Dioxide 27 mmol/L (22-30); Chloride 100 mmol/L (98-107); Glucose 129 mg/dL (74-99); Magnesium 1.7 mg/dL (1.6-2.3); Phosphorus 2.9 mg/dL (2.5-4.5); Sodium 136 mmol/L (137-145)
[2018-06-10 07:46] LABS: Potassium 4.5 mmol/L (3.5-5.1)
[2018-06-10] MEDS: ASCORBIC ACID 500 MG TAB PO SCH (08:30)
[2018-06-10] MEDS: FAMOTIDINE 20 MG TAB PO SCH ×2 (08:30→20:42)
[2018-06-10] MEDS: cefTRIAXone IN SWFI 2,000 MG/20 ML SYRINGE IVP SCH (08:30)
--- NOTE | 2018-06-10 10:38 | FL ---
EXAMINATION TYPE: FL cystogram DATE OF EXAM: 06/10/2018 COMPARISON: NONE HISTORY: Post bladder stone removal TECHNIQUE: Fluoroscopy. FINDINGS: Large calcifications in the right upper quadrant are stable could be related the gallbladder and comp atible with gallstones by recent CT scan. Hypertrophic and degenerative changes spine. Arthropathy of the hips. Bowel gas pattern nonspecific. Contrast was instilled through a pre-existing Vasquez catheter. There is trabeculation of bladder with no obvious extravasation surrounding the bladder. Postvoid demonstrated no significant residual. Smal l amount contrast was seen adjacent to the Vasquez catheter near the level the prostatic urethra, likel y contained within the urethra correlate clinically for confirmation. Presence of Vasquez catheter and patient's inability to urinate Limited assessment of the urethra. IMPRESSION: 1. Bladder trabeculation correlate for cystitis. No evidence of extravasation surrounding the bladder . Thin linear area of contrast along the proximal portion of the Vasquez catheter just to the right. Th is likely is contained within the urethra. Although a tiny urethral injury could not be excluded valarie elate clinically.
[2018-06-10] MEDS: ASPIRIN 81 MG PO SCH (12:17)
[2018-06-10] MEDS: MULTIVITAMINS, THERA 1 EACH TAB PO SCH (12:17)
[2018-06-10 13:01] LABS: Hepatitis A Antibody IgM Non-Reactive (Non-Reactive); Hepatitis B Core IgM Non-Reactive (Non-Reactive)
--- NOTE | 2018-06-10 14:28 | P.PN ---
Subjective 78-year-old male with a history of recent bladder stone removal, admitted to the hospital with a diagnosis of possible sepsis. The patient apparently had abrupt onset of shakes and fever. He was found have a temperature of 102. He received quite a bit of fluid resuscitation in the emergency department but despite that became hypotensive and was started on norepinephrine. The patient' s currently on about 16 mcg/m of norepinephrine. Mucous membranes patient received more than 4 L of fluid. The patient's a little bit tachypnea. Mildly tachycardic. Normotensive currently. The patient has been seen by urology. Has a Vasquez catheter in place. He does have a history of kidney stones and bladder stones. He's had a previous history of heart catheterization with stent placement hernia repair joint replacement and other orthopedic procedures. Patient had urine cultures are positive for gram-negative bacilli. Patient is on ceftriaxone which was switched to cefepime because of his recent hospitalization high risk for pseudomonal infections, the spectrum can be narrowed down once we have the organism on the cultures. 06/07/2018 Patient was admitted to the ICU with vascular shock. He needed pressors. Currently he is off Levophed. Continue on intravenous fluids patient still dyspneic. Chest x-ray shows right lower lobe infiltrate. Patient is on antibiotics patient reviewing the lab shows no leukocytosis. His abdomen mildly anemic at 11.3. But he has low platelet count of 68 which needs to be monitored. Sodium 139. Potassium 4.3. And creatinine is 2.2. Patient lactic acid was trending down from 3.9 to 2.5. Follow-up culture results 06/08/2018 pt would be transferred from ICU to general medical floor, Continue on intravenous fluids patient still dyspneic. Chest x-ray shows right lower lobe infiltrate. Patient is on antibiotics patient reviewing the lab shows no leukocytosis. fever on admission has resolved . Hb 11.7 and platelet is up from 68 to 90 , no over signs of bleeding. Hemoglobin is mildly anemic at 11.3. But he has low platelet count of 68 which needs to be monitored. Sodium 137. Potassium 4.0. And creatinine is coming down 1.7. he is still on iv fluid at 75 ml/hr. Patient lactic acid was trending down from 3.9 to 2.5. we will check Lactic a tomorrow. Follow-up culture results. Pt is with positive blood culture with serratia , we will call Infectious disease consult 06/09/2018 patient dyspneia improving sligtly. Chest x-ray shows right lower lobe infiltrate. Patient is on antibiotics patient reviewing the lab shows no leukocytosis. fever on admission has resolved . Hb 12.7 and platelet is up from 68 to 90 to 106 , no over signs of bleeding. pt refused heparin saying he has tendency of bleeding and he does not want it . Sodium 137. Potassium 4.0. And creatinine is WNL. he is still on iv fluid at 75 ml/hr. Patient lactic acid is normal. Follow-up culture results. Pt is with positive blood culture with serratia Infectious disease consult appreciated 06/10/2018 Patient is clinically doing well probably can be discharged to subacute rehabilitation tomorrow patient the blood cultures were positive for Serratia marcescens which is sensitive to some cephalosporins as well as fluoroquinolones antibiotic duration service and infectious disease patient will lead total of 14 days of antibiotics. Objective - Vital Signs Vital signs: Vital Signs Temp 98.4 F 06/10/18 05:00 Pulse 79 06/10/18 08:00 Resp 16 06/10/18 08:00 BP 137/77 06/10/18 05:00 Pulse Ox 96 06/10/18 05:00 Intake & Output 06/09/18 06/10/18 06/10/18 18:59 06:59 18:59 Intake Total 240 1100 Output Total 2700 1140 2200 Balance -2460 -40 -2200 Intake: IV 900 Sodium Chloride 0.45% 1, 900 000 ml @ 75 mls/hr IV . [id number] [facility] Rx#:[id number] Oral 240 200 Output: Urine 2700 1140 2200 Uretheral (Vasquez) 2200 Other: Voiding Method Indwelling Catheter Indwelling Catheter Indwelling Catheter # Voids 3 - Exam GENERAL: The patient is alert and oriented x3, not in any acute distress. Well developed, well nourished. HEENT: Pupils are round and equally reacting to light. EOMI. No scleral icterus. No conjunctival pallor. Normocephalic, atraumatic. No pharyngeal erythema. No thyromegaly. CARDIOVASCULAR: S1 and S2 present. No murmurs, rubs, or gallops. PULMONARY: Chest is clear to auscultation, no wheezing or crackles. ABDOMEN: Soft, nontender, nondistended, normoactive bowel sounds. No palpable organomegaly. MUSCULOSKELETAL: No joint swelling or deformity. EXTREMITIES: No cyanosis, clubbing, or pedal edema. NEUROLOGICAL: Gross neurological examination did not reveal any focal deficits. SKIN: No rashes. - Labs CBC & Chem 7: 06/10/18 07:12 06/10/18 07:12 Labs: Abnormal Lab Results - Last 24 Hours (Table) 06/10/18 06/10/18 Range/Units 07:12 07:12 Hgb 12.2 L (13.0-17.5) gm/dL Hct 37.8 L (39.0-53.0) % RDW 17.3 H (11.5-15.5) % Plt Count 118 L (150-450) k/uL Lymphocytes # 0.5 L (1.0-4.8) k/uL Sodium 136 L (137-145) mmol/L BUN 22 H (9-20) mg/dL Glucose 129 H (74-99) mg/dL Microbiology - Last 24 Hours (Table) 06/07/18 02:03 Blood Culture - Preliminary Blood No Growth after 72 hours 06/06/18 13:15 Blood Culture - Preliminary Blood No Growth after 72 hours Assessment and Plan Plan: -Septic shock and bacteremia with Serratia marcescens and patient is presently on ceftriaxone repeat cultures are negative -Atrial fibrillation presently rate controlled patient is not on anticoagulation -Hyperlipidemia -Hypertension -History of nephrolithiasis. -Patient has history of also reverend when HHT because of which patient is not on antiplatelet correlation for atrial fibrillation
--- NOTE | 2018-06-10 17:34 | P.PN ---
Progress Note - Text Progress Note Date: 06/10/18 Mr. Bañuelos's incision is healing well. Surgical naveed are out. The Vasquez catheter is draining clear yellow urine. The cystogram showed no extravasation. The Vasquez catheter will be removed tomorrow, and he is urologically stable for discharge. He will follow-up with me in 1 week, sooner if needed.
[2018-06-10] MEDS: ATORVASTATIN 10 MG TAB PO SCH (20:42)
--- NOTE | 2018-06-10 22:23 | P.PN ---
Subjective Progress Note Date: 06/10/18 Pleasant 78-year-old male presented hospital feeling very poorly with sudden onset high-grade fever with chills as well as profound weakness. He consequently presented to the emergency center where he was found to have evidence of atrial fibrillation with rapid ventricular response as well as a temperature 102. He was hypotensive and required admission to the intensive care unit and vasopressor therapy. The patient has now had an improvement of his status and his been moved to the medical floor, however there is evidence of the positive blood cultures and with at the infectious diseases consultation is been requested. The patient's recent and pertinent history is that he has difficulties with stone formation in his urinary system. He does have a history of prior nephrolithiasis as well as bladder stones. Recently he developed an extensive bladder stone and on 05/30/2018 underwent the surgical extraction of the stone. It is related was treated with cephalexin as well as Levaquin around the time of this procedure. As noted the patient is now had the onset of a high-grade fevers chills and atrial fibrillation. He fortunately is more stable at this point in time. He is doing well with antibiotic therapy. He still feels weak but does feel better. 06/10/2018 the patient is feeling somewhat better today. He is denying steady new symptoms. His Vasquez catheter remains in place with plans for removal in the morning and evaluation if he will be able to spontaneously void. The case is discussed with urology. Objective - Vital Signs Vital signs: Vital Signs Temp 98.0 F 06/10/18 15:26 Pulse 79 06/10/18 15:53 Resp 16 06/10/18 15:53 BP 127/66 06/10/18 15:26 Pulse Ox 96 06/10/18 15:26 Intake & Output 06/10/18 06/10/18 06/11/18 06:59 18:59 06:59 Intake Total 1100 160 Output Total 1140 2860 Balance -40 -2700 Intake: IV 900 Sodium Chloride 0.45% 1, 900 000 ml @ 75 mls/hr IV . [id number] [facility] Rx#:[id number] Oral 200 160 Output: Urine 1140 2860 Uretheral (Vasquez) 2800 Other: Voiding Method Indwelling Catheter Indwelling Catheter - Exam 78-year-old male who is comfortable at this time HEENT: Anicteric conjunctiva are pink and moist nasal mucosa grossly intact without significant lesions, there is no thrush. Evidence of extensive dental work Neck: The neck is supple without significant lymphadenopathy or thyromegaly. Lungs: Good bilateral air entry without significant crackles or wheezing. There is no significant bronchial sounds. There is no egophony or dullness. Heart: Irregularly irregular with an audible S1 and S2 soft S4 no distinct murmur click or rub PMI was nondisplaced Abdomen: Positive bowel sounds soft has only minimal tenderness over the surgical site from the bladder stone removal on 05/30/2018. The site is without erythema crepitance or fluctuance, there is no drainage from that site. without palpable masses or organomegaly. There was no guarding or rebound. There is no flank tenderness Extremities: The upper extremities have evidence of some ecchymosis and an IV site that is intact, is bilateral lower extremity edema 2+ pitting no open ulcers Neuro: Awake alert oriented to person place and time. There are no acute new gross focal sensory motor deficits. - Labs CBC & Chem 7: 06/10/18 07:12 06/10/18 07:12 Labs: Abnormal Lab Results - Last 24 Hours (Table) 06/10/18 06/10/18 Range/Units 07:12 07:12 Hgb 12.2 L (13.0-17.5) gm/dL Hct 37.8 L (39.0-53.0) % RDW 17.3 H (11.5-15.5) % Plt Count 118 L (150-450) k/uL Lymphocytes # 0.5 L (1.0-4.8) k/uL Sodium 136 L (137-145) mmol/L BUN 22 H (9-20) mg/dL Glucose 129 H (74-99) mg/dL Microbiology - Last 24 Hours (Table) 06/06/18 13:15 Blood Culture - Preliminary Blood No Growth after 96 hours 06/07/18 02:03 Blood Culture - Preliminary Blood No Growth after 72 hours Laboratory Results WBC 5.5 k/uL (3.8-10.6) 06/10/18 07:12 RBC 4.55 m/uL (4.30-5.90) 06/10/18 07:12 Hgb 12.2 gm/dL (13.0-17.5) L 06/10/18 07:12 Hct 37.8 % (39.0-53.0) L 06/10/18 07:12 MCV 83.1 fL (80.0-100.0) 06/10/18 07:12 MCH 26.9 pg (25.0-35.0) 06/10/18 07:12 MCHC 32.3 g/dL (31.0-37.0) 06/10/18 07:12 RDW 17.3 % (11.5-15.5) H 06/10/18 07:12 Plt Count 118 k/uL (150-450) L 06/10/18 07:12 Neutrophils % 82 % 06/10/18 07:12 Neutrophils % (Manual) 54 % 06/06/18 04:46 Band Neutrophils % 30 % 06/06/18 04:46 Lymphocytes % 8 % 06/10/18 07:12 Lymphocytes % (Manual) 2 % 06/06/18 04:46 Monocytes % 7 % 06/10/18 07:12 Monocytes % (Manual) 3 % 06/06/18 04:46 Eosinophils % 1 % 06/10/18 07:12 Basophils % 0 % 06/10/18 07:12 Metamyelocytes % 11 % 06/06/18 04:46 Neutrophils # 4.5 k/uL (1.3-7.7) 06/10/18 07:12 Neutrophils # (Manual) 11.80 k/uL (1.3-7.7) H 06/06/18 04:46 Lymphocytes # 0.5 k/uL (1.0-4.8) L 06/10/18 07:12 Lymphocytes # (Manual) 0.28 k/uL (1.0-4.8) L 06/06/18 04:46 Monocytes # 0.4 k/uL (0-1.0) 06/10/18 07:12 Monocytes # (Manual) 0.42 k/uL (0-1.0) 06/06/18 04:46 Eosinophils # 0.0 k/uL (0-0.7) 06/10/18 07:12 Basophils # 0.0 k/uL (0-0.2) 06/10/18 07:12 Metamyelocytes # (Man) 1.55 k/uL (0) H 06/06/18 04:46 Nucleated RBCs 0 /100 WBC (0-0) 06/06/18 04:46 Manual Slide Review Performed 06/06/18 04:46 Large Platelets Present 06/05/18 17:17 Hypochromasia Slight 06/10/18 07:12 Anisocytosis Slight 06/10/18 07:12 Microcytosis Slight 06/09/18 08:04 PT 12.5 sec (9.0-12.0) H 06/06/18 04:46 INR 1.3 (<1.2) H 06/06/18 04:46 APTT 25.9 sec (22.0-30.0) 06/06/18 04:46 Sodium 136 mmol/L (137-145) L 06/10/18 07:12 Potassium 4.5 mmol/L (3.5-5.1) 06/10/18 07:12 Chloride 100 mmol/L (98-107) 06/10/18 07:12 Carbon Dioxide 27 mmol/L (22-30) 06/10/18 07:12 Anion Gap 9 mmol/L 06/10/18 07:12 BUN 22 mg/dL (9-20) H 06/10/18 07:12 Creatinine 0.73 mg/dL (0.66-1.25) 06/10/18 07:12 Est GFR (CKD-EPI)AfAm >90 (>60 ml/min/1.73 sqM) 06/10/18 07:12 Est GFR (CKD-EPI)NonAf 88 (>60 ml/min/1.73 sqM) 06/10/18 07:12 Glucose 129 mg/dL (74-99) H 06/10/18 07:12 POC Glucose (mg/dL) 112 mg/dL (75-99) H 06/05/18 23:01 POC Glu [employer] Custodian ID Elaine Li 06/05/18 23:01 Lactic Ac Sepsis Rflx Y 06/06/18 22:33 Plasma Lactic Acid [place] 1.2 mmol/L (0.7-2.0) 06/09/18 08:04 Calcium 8.5 mg/dL (8.4-10.2) 06/10/18 07:12 Phosphorus 2.9 mg/dL (2.5-4.5) 06/10/18 07:12 Magnesium 1.7 mg/dL (1.6-2.3) 06/10/18 07:12 Total Bilirubin 5.4 mg/dL (0.2-1.3) H 06/06/18 04:46 AST 41 U/L (17-59) 06/06/18 04:46 ALT 32 U/L (21-72) 06/06/18 04:46 Alkaline Phosphatase 69 U/L (38-126) 06/06/18 04:46 Total Protein 5.3 g/dL (6.3-8.2) L 06/06/18 04:46 Albumin 3.0 g/dL (3.5-5.0) L 06/06/18 04:46 Urine Color Yellow 06/05/18 17:15 Urine Appearance Cloudy (Clear) 06/05/18 17:15 Urine pH 6.0 (5.0-8.0) 06/05/18 17:15 Ur Specific [place] 1.013 (1.001-1.035) 06/05/18 17:15 Urine Protein 1+ (Negative) H 06/05/18 17:15 Urine Glucose (UA) Negative (Negative) 06/05/18 17:15 Urine Ketones Negative (Negative) 06/05/18 17:15 Urine Blood Large (Negative) H 06/05/18 17:15 Urine Nitrite Positive (Negative) 06/05/18 17:15 Urine Bilirubin Negative (Negative) 06/05/18 17:15 Urine Urobilinogen <2.0 mg/dL (<2.0) 06/05/18 17:15 Ur Leukocyte Esterase Large (Negative) H 06/05/18 17:15 Urine RBC 59 /hpf (0-5) H 06/05/18 17:15 Urine WBC 116 /hpf (0-5) H 06/05/18 17:15 Ur Squamous Epith Cells 3 /hpf (0-4) 06/05/18 17:15 Urine Bacteria Few /hpf (None) H 06/05/18 17:15 Urine Mucus Occasional /hpf (None) H 06/05/18 17:15 Hepatitis A IgM Ab Non-Reactive (Non-Reactive) 06/10/18 07:12 Hep Bs Antigen Non-Reactive (Non-Reactive) 06/10/18 07:12 Hep B Core IgM Ab Non-Reactive (Non-Reactive) 06/10/18 07:12 Hep C IgG Ab Non-Reactive (Non-Reactive) 06/10/18 07:12 Microbiology 06/06/18 13:15 Blood Blood Culture - Preliminary No Growth after 96 hours 06/07/18 02:03 Blood Blood Culture - Preliminary No Growth after 72 hours 06/05/18 17:18 Blood Blood Culture Gram Stain - Final 06/05/18 17:18 Blood Blood Culture - Final Serratia marcescens 06/05/18 17:17 Blood Blood Culture - Final Assessment and Plan (1) Septic shock Narrative/Plan: 78-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 The patient was treated with antibiotic therapy after the procedure with cephalexin and Levaquin. The patient however presents to Hospital of high-grade fever of greater than 102 chills rigors and hypotension and required admission to the intensive care unit in vasopressor therapy. He fortunately responded quickly to therapy and has already been transitioned out of the intensive care unit. The patient does continue to feel poorly but better than admission. He also had difficulties with atrial fibrillation which is also improved. At this time the patient is having improvement of his status his temperatures improve 102 down to 99. Follow blood culture appears to be negative so far, no urine culture was available from admission. For therapy for the Serratia that has been isolated antibiotic therapy was transitioned to high dose ceftriaxone. The patient is noted to be feeling better but there is evidence of an elevated bilirubin of an undetermined etiology. Possibly due to his underlying hereditary telangiectasia. At this time the patient has failed outpatient antibiotic therapy and developed septic shock and we have discussed that it will be prudent for him to utilize a course of intravenous antibiotic therapy now that he is starting to show improvement. This will be arranged in the outpatient setting. Elevated bilirubin is occurring without elevated alkaline phosphatase are elevated AST her ALT, is having likely to be a viral hepatitis. Patient does have thrombocytopenia likely multifactorial but likely worsened with the current sepsis is improving and will be monitored. The lactic acidosis admission was likely on the basis of sepsis as well as perfusion that was altered due to his atrial fibrillation. It has now normalized. 06/10/2018 reveals a patient is feeling considerably better. They're currently plans in place for his discharge in the next short period of time. He does have transportation and his would be able to bring him to the clinic setting for his daily dose of antibiotic therapy. Given that he was on oral antibiotic therapy and he still had breakthrough bacteremia and sepsis, not thought to be a candidate for oral outpatient antibiotic therapy and will be discharged home on Rocephin for 14 days. He will have a trial of Vasquez catheter removal in the morning if not successfully discharged home with the Vasquez in place and then follow-up with urologist. They're trying to get back to her home in [place] by the end of June. Current Visit: Yes Status: Acute Code(s): A41.9 - SEPSIS, UNSPECIFIED ORGANISM; R65.21 - SEVERE SEPSIS WITH SEPTIC SHOCK SNOMED Code(s): 45806261 (2) Serratia sepsis Current Visit: Yes Status: Acute Code(s): A41.53 - SEPSIS DUE TO SERRATIA SNOMED Code(s): 904771710 (3) Rapid atrial fibrillation Current Visit: Yes Status: Acute Code(s): I48.91 - UNSPECIFIED ATRIAL FIBRILLATION SNOMED Code(s): 246721306 (4) Thrombocytopenia Current Visit: Yes Status: Acute Code(s): D69.6 - THROMBOCYTOPENIA, UNSPECIFIED SNOMED Code(s): 109060599 (5) Euint-Tusxj-Vpaos disease Current Visit: Yes Status: Acute Code(s): I78.0 - HEREDITARY HEMORRHAGIC TELANGIECTASIA SNOMED Code(s): 29590769 (6) Hyperbilirubinemia Current Visit: Yes Status: Acute Code(s): E80.6 - OTHER DISORDERS OF BILIRUBIN METABOLISM SNOMED Code(s): 11007540
[2018-06-11 06:09] VITALS: BP 100/52; PULSE 81; TEMP 97.6
[2018-06-11] MEDS: ASCORBIC ACID 500 MG TAB PO SCH (07:54)
[2018-06-11] MEDS: MULTIVITAMINS, THERA 1 EACH TAB PO SCH (07:54)
[2018-06-11] MEDS: ASPIRIN 81 MG PO SCH (07:54)
[2018-06-11] MEDS: cefTRIAXone IN SWFI 2,000 MG/20 ML SYRINGE IVP SCH (07:54)
[2018-06-11] MEDS: FAMOTIDINE 20 MG TAB PO SCH (07:55)
[2018-06-11] MEDS: SODIUM CHLORIDE 0.45% 1,000 ML IV SCH (08:00)
--- NOTE | 2018-06-11 09:15 | CDI ---
Last Revision, October 2017 Documentation Clarification Form Date: 06/10/18 From: Grace Guzman Admit Date: 06/05/2018 9:34:00 PM Patient Name: Ori Bañuelos Visit Number: [id number] ATTENTION: The Clinical Documentation Specialists (CDI) and [facility] Coding Staff appreciate your assistance in clarifying documentation. Please respond to the clarification below the line at the bottom and electronically sign. The CDI & [facility] Coding staff will review the response and follow-up if needed. Please note: Queries are made part of the Legal Health Record. If you have any questions, please contact the author of this message via ITS. Dr. Nica Vital, Can you please render your opinion on the following documentation? Presented with UTI and sepsis, dehydration, hypotensive episode 06/07 PN states pneumonia could not be ruled out. 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, a fib, hyperlipidemia, HTN, Clinical Indicators: WBC on admission: 1.5, 06/06 14.1, 06/10 5.5 X-ray: 06/07 correlate for atelectasis and pneumonia Lung/Breathing assessment: Pulmonary states few scattered rhonchi, Occasional cough Blood cultures positive for gram negative bacilli Treatment: Antibiotics: Cefepime IVPB, Rocephin IVPB In order to capture the severity of condition, please clarify if the condition signifies and if you are treating for: pneumonia ruled in pneumonia ruled out If ruled in please specify type Other, please specify Unable to determine Please continue to document in your progress notes, under the line below and/or in the discharge summary in order to capture severity of illness and risk of mortality. Include clinical findings that support your diagnosis. pneumonia ruled out MTDD
--- NOTE | 2018-06-11 09:31 | P.PN ---
Progress Note - Text Progress Note Date: 06/11/18 The Vasquez catheter was removed this morning, and the patient has been able to void twice without difficulty. The second time he voided, the urine was clear yellow in color. Bladder scan will be used to confirm adequate bladder emptying. Discharge later today is anticipated, and he will receive several days of outpatient IV antibiotic therapy. He will follow-up in one week.
--- NOTE | 2018-06-11 12:46 | P.DS ---
Providers Date of admission: 06/05/18 21:34 Attending physician: Isidro Harrell Consults: 06/05/18 21:30 Consult Physician Stat Consulting Provider: Dao Montalvo Consult Reason/Comments: ICU management Do you want consulting provider notified?: Already Contacted Consult Physician Urgent Consulting Provider: Israel Levy Consult Reason/Comments: Status post bladder stone removal Do you want consulting provider notified?: Already Contacted 06/05/18 21:34 Consult Physician Routine Consulting Provider: Catherine Klein Consult Reason/Comments: Acute and chronic atrial fibrillation Do you want consulting provider notified?: Yes 06/08/18 22:03 Consult Physician Routine Consulting Provider: Morgan Jensen Consult Reason/Comments: positive blood culture Do you want consulting provider notified?: Yes Primary care physician: [facility] Course: 78-year-old male with a history of recent bladder stone removal, admitted to the hospital with a diagnosis of possible sepsis. The patient apparently had abrupt onset of shakes and fever. He was found have a temperature of 102. He received quite a bit of fluid resuscitation in the emergency department but despite that became hypotensive and was started on norepinephrine. The patient' s currently on about 16 mcg/m of norepinephrine. Mucous membranes patient received more than 4 L of fluid. The patient's a little bit tachypnea. Mildly tachycardic. Normotensive currently. The patient has been seen by urology. Has a Vasquez catheter in place. He does have a history of kidney stones and bladder stones. He's had a previous history of heart catheterization with stent placement hernia repair joint replacement and other orthopedic procedures. Patient had urine cultures are positive for gram-negative bacilli. Patient is on ceftriaxone which was switched to cefepime because of his recent hospitalization high risk for pseudomonal infections, the spectrum can be narrowed down once we have the organism on the cultures. 06/07/2018 Patient was admitted to the ICU with vascular shock. He needed pressors. Currently he is off Levophed. Continue on intravenous fluids patient still dyspneic. Chest x-ray shows right lower lobe infiltrate. Patient is on antibiotics patient reviewing the lab shows no leukocytosis. His abdomen mildly anemic at 11.3. But he has low platelet count of 68 which needs to be monitored. Sodium 139. Potassium 4.3. And creatinine is 2.2. Patient lactic acid was trending down from 3.9 to 2.5. Follow-up culture results 06/08/2018 pt would be transferred from ICU to general medical floor, Continue on intravenous fluids patient still dyspneic. Chest x-ray shows right lower lobe infiltrate. Patient is on antibiotics patient reviewing the lab shows no leukocytosis. fever on admission has resolved . Hb 11.7 and platelet is up from 68 to 90 , no over signs of bleeding. Hemoglobin is mildly anemic at 11.3. But he has low platelet count of 68 which needs to be monitored. Sodium 137. Potassium 4.0. And creatinine is coming down 1.7. he is still on iv fluid at 75 ml/hr. Patient lactic acid was trending down from 3.9 to 2.5. we will check Lactic a tomorrow. Follow-up culture results. Pt is with positive blood culture with serratia , we will call Infectious disease consult 06/09/2018 patient dyspneia improving sligtly. Chest x-ray shows right lower lobe infiltrate. Patient is on antibiotics patient reviewing the lab shows no leukocytosis. fever on admission has resolved . Hb 12.7 and platelet is up from 68 to 90 to 106 , no over signs of bleeding. pt refused heparin saying he has tendency of bleeding and he does not want it . Sodium 137. Potassium 4.0. And creatinine is WNL. he is still on iv fluid at 75 ml/hr. Patient lactic acid is normal. Follow-up culture results. Pt is with positive blood culture with serratia Infectious disease consult appreciated 06/10/2018 Patient is clinically doing well probably can be discharged to subacute rehabilitation tomorrow patient the blood cultures were positive for Serratia marcescens which is sensitive to some cephalosporins as well as fluoroquinolones antibiotic duration service and infectious disease patient will lead total of 14 days of antibiotics. 06/01/2018 Infectious disease is recommending IV antibiotics patient will receive a midline today after that patient will be discharged decreasing the dose of lisinopril has his blood pressure is on the low normal side Exam GENERAL: The patient is alert and oriented x3, not in any acute distress. Well developed, well nourished. HEENT: Pupils are round and equally reacting to light. EOMI. No scleral icterus. No conjunctival pallor. Normocephalic, atraumatic. No pharyngeal erythema. No thyromegaly. CARDIOVASCULAR: S1 and S2 present. No murmurs, rubs, or gallops. PULMONARY: Chest is clear to auscultation, no wheezing or crackles. ABDOMEN: Soft, nontender, nondistended, normoactive bowel sounds. No palpable organomegaly. MUSCULOSKELETAL: No joint swelling or deformity. EXTREMITIES: No cyanosis, clubbing, or pedal edema. NEUROLOGICAL: Gross neurological examination did not reveal any focal deficits. SKIN: No rashes. Assessment and Plan Plan: -Septic shock and bacteremia with Serratia marcescens and patient is presently on ceftriaxone repeat cultures are negative, patient is being discharged on IV Rocephin -Atrial fibrillation presently rate controlled patient is not on anticoagulation -Hyperlipidemia -Hypertension -History of nephrolithiasis. -Patient has history of also reverend when HHT because of which patient is not on anticoagulation for atrial fibrillation Patient Condition at Discharge: Serious Plan - Discharge Summary Discharge Rx Participant: Yes New Discharge Prescriptions: New cefTRIAXone [Rocephin] 2,000 mg IVPB Q24HR #14 vial Continue Aspirin 81 mg PO DAILY chew Multivitamins, Thera [Multivitamin (formulary)] 1 each PO DAILY@1200 tab Simvastatin [Zocor] 20 mg PO HS Ascorbic Acid [Vitamin C] 250 mg PO DAILY HYDROcodone/APAP 5-325MG [[place] 5-325] 1 tab PO Q6HR PRN 3 Days #12 tab PRN Reason: Pain Changed Lisinopril [Zestril] 20 mg PO DAILY #0 Discharge Medication List Aspirin 81 mg PO DAILY chew 06/14/15 [Rx] Multivitamins, Thera [Multivitamin (formulary)] 1 each PO DAILY@1200 tab [Rx] Ascorbic Acid [Vitamin C] 250 mg PO DAILY 05/24/18 [History] Simvastatin [Zocor] 20 mg PO HS 05/24/18 [History] HYDROcodone/APAP 5-325MG [[place] 5-325] 1 tab PO Q6HR PRN 3 Days #12 tab [Rx] cefTRIAXone [Rocephin] 2,000 mg IVPB Q24HR #14 vial 06/10/18 [Rx] Lisinopril [Zestril] 20 mg PO DAILY #0 06/11/18 [Rx] Follow up Appointment(s)/Referral(s): Marco Camara MD [STAFF PHYSICIAN] - 06/20/18 2:20 pm [facility] [Primary Care Provider] - 07/04/18 3:00 pm Ambulatory/Diagnostic Orders: Basic Metabolic Panel [LAB.AMB] Location: None Selected Complete Blood Count w/diff [LAB.AMB] Location: None Selected Activity/Diet/Wound Care/Special Instructions: First appointment at ' office will be tomorrow, June 12 at 9:45am. address: [address] [place] [address], [address], [place]; phone # Discharge Disposition: HOME WITH HOME HEALTH SERVICES
== END 2018-06-11 13:09 | disposition home health service (06) | DRG 871 ==
LOC: EC 15:20 → 6ICU 21:34 → 5MS5E 06-08 13:39
PROVIDERS: ADMIT Hospitalist; ATTEND Hospitalist
PROC: 05H633Z Insertion of Infusion Device into Left Subclavian Vein, Percutaneous Approach (ICD-10-PCS; principal; 2018-06-11 10:00)
PROC: B547ZZA Ultrasonography of Left Subclavian Vein, Guidance (ICD-10-PCS; 2018-06-11 10:00)
DX: A41.53 Sepsis due to Serratia (principal); R65.21 Severe sepsis with septic shock; N39.0 Urinary tract infection, site not specified; E87.2 Acidosis; B19.9 Unspecified viral hepatitis without hepatic coma; E86.0 Dehydration; I48.2 Chronic atrial fibrillation; I10 Essential (primary) hypertension; E78.5 Hyperlipidemia, unspecified; I78.0 Hereditary hemorrhagic telangiectasia; Z96.652 Presence of left artificial knee joint; D64.9 Anemia, unspecified; D69.6 Thrombocytopenia, unspecified; H91.90 Unspecified hearing loss, unspecified ear; I25.10 Atherosclerotic heart disease of native coronary artery without angina pectoris; Z87.442 Personal history of urinary calculi; Z79.82 Long term (current) use of aspirin; Z79.899 Other long term (current) drug therapy; Z82.49 Family history of ischemic heart disease and other diseases of the circulatory system; Z83.3 Family history of diabetes mellitus; Z95.5 Presence of coronary angioplasty implant and graft
CPT/HCPCS: 36415; 36569; 51798; 71045; 71046; 74018; 74430; 76937; 80048; 80053; 80074; 81001; 83605; 83735; 84100; 85025; 85027; 85610; 85730; 87040; 87077; 87186; 93005; 94660; 96361; 96374; 96375; 99291